=== PATIENT | male | born 1945 | race Caucasian/White ===

== ENCOUNTER 2016-06-20 18:40 | Inpatient (IN) | payer OTHER ==
[~2016-06-20] VITALS: Ht 172.7 cm; Wt 102.0 kg
[2016-06-20 18:43] VITALS: Ht 172.7 cm; Wt 102.0 kg
[2016-06-20] MEDS ORDERED: METHYLPREDNISOLONE 125 MG INJ IV STA (19:07)
[2016-06-20] MEDS ORDERED: ALBUTEROL 0.5% (NEB) 2.5 MG/0.5 ML AMP INH STA (19:07)
[2016-06-20] MEDS ORDERED: IPRATROPIUM (NEB) 0.5 MG/2.5 ML AMP INH STA (19:07)
[2016-06-20] MEDS ORDERED: SOD CHLORIDE 0.9% 500 ML IV STA (19:07)
--- NOTE | 2016-06-20 19:29 | RADRPT ---
PROCEDURE: XR Chest. CLINICAL INDICATION: Abdominal pain. TECHNIQUE: Single frontal view of the chest was obtained COMPARISON: None FINDINGS: Cardiomegaly with mild bilateral lung base patchy atelectasis versus air space disease. There is no pleural effusion or pneumothorax. IMPRESSION: Cardiomegaly with mild failure. RPTAT: [facility] Physician Claus Date Time Electronically viewed and signed by Ta Meneses Physician on 06/20/2016 19:28 RS/
[2016-06-20] MEDS ORDERED: ENALAPRILAT 1.25 MG INJ IV ONE (19:30)
[2016-06-20 19:57] LABS: ALBUMIN 4.1 g/dl (3.3-4.9)
[2016-06-20 19:59] LABS: CREATININE 0.93 mg/dl (0.61-1.24)
[2016-06-20 20:00] LABS: BILIRUBIN,INDIRECT 0.5 mg/dl (0-1.1); BILIRUBIN,TOTAL 0.5 mg/dl (0.2-1.3); CALCIUM 9.1 mg/dl (8.4-10.2)
[2016-06-20] MEDS ORDERED: ATOR40TA68 PO (20:01)
[2016-06-20] MEDS ORDERED: LISI40TA9 PO (20:01)
[2016-06-20 20:02] LABS: ALBUMIN/GLOBULIN RATIO 1.41
[2016-06-20] MEDS ORDERED: METF-388 PO (20:02)
[2016-06-20] MEDS ORDERED: GLIP5TAB13 PO (20:02)
[2016-06-20 20:16] LABS: BASOPHIL # 0.1 10^3/ul (0.0-0.1); BASOPHILS % 0.5 % (0.0-2.0); EOSINOPHILS # 0.3 10^3/ul (0.0-0.5); EOSINOPHILS % 2.7 % (0.0-7.0); HEMOGLOBIN 13.8 g/dl (14.0-18.0); LYMPHOCYTES # 1.3 10^3/ul (0.8-2.9); LYMPHOCYTES % 11.3 % (15.0-51.0); MEAN CORPUSCULAR HEMOGLOBIN 29.1 pg (29.0-33.0); MEAN CORPUSCULAR HGB CONC 33.6 g/dl (32.0-37.0); MEAN CORPUSCULAR VOLUME 86.5 fl (82.0-101.0); MEAN PLATELET VOLUME 11.1 fl (7.4-10.4); MONOCYTE # 0.5 10^3/ul (0.3-0.9); NEUTROPHIL # 9.6 10^3/ul (1.6-7.5); NEUTROPHILS % 81.5 % (39.0-77.0); PLATELET COUNT 156 10^3/UL (140-440); RED BLOOD COUNT 4.74 10^6/ul (4.70-6.10); RED CELL DISTRIBUTION WIDTH 13.8 % (11.5-14.5); TROPONIN-I 0.033 ng/ml (0.00-0.12); UNCORRECTED WBC 11.7 10^3/ul (4.8-10.8); WHITE BLOOD COUNT 11.7 10^3/ul (4.8-10.8)
[2016-06-20 20:27] LABS: CONDITION 1
[2016-06-20] MEDS ORDERED: NACL 0.9% 3 ML SYG IV SCH (21:00)
[2016-06-20] MEDS ORDERED: ALBUTEROL/IPRATROPIUM (NEB) 3 ML AMP HHN PRN (21:00)
[2016-06-20] MEDS ORDERED: morphine 2 MG INJ IV PRN (21:00)
[2016-06-20] MEDS ORDERED: NITROGLYCERIN (SL) 0.4 MG TAB SL PRN (21:00)
[2016-06-20] MEDS ORDERED: LABETALOL HCL 20MG INJ IV PRN (21:00)
[2016-06-20] MEDS ORDERED: ONDANSETRON 4 MG INJ IV PRN (21:00)
[2016-06-20] MEDS ORDERED: FUROSEMIDE 40 MG INJ IV ONE (21:00)
[2016-06-20] MEDS ORDERED: ACETAMINOPHEN 325 MG TAB PO PRN (21:00)
[2016-06-20] MEDS ORDERED: INSULIN GLARGINE [LANtus] 3 ML PEN SC SCH (21:00)
[2016-06-20] MEDS ORDERED: LORAZEPAM 2 MG INJ IV PRN (21:00)
[2016-06-20] MEDS ORDERED: DOCUSATE SODIUM 100 MG CAP PO PRN (21:00)
--- NOTE | 2016-06-20 21:14 | ERA ---
ER Documentation Chief Complaint Date/Time DATE: 06/20/16 TIME: 21:06 Chief Complaint shortness of breath,cough x 1 day w/ chest congestion, hx-copd HPI 71-year-old man brought in by EMS from home for complaints of severe coughing fit and shortness of breath beginning at rest. Patient has a history of COPD and feels like at this time he is wheezing. He denies chest pain, no fevers or chills, no vomiting or diarrhea, no headache or blurry vision. Patient denies recent high salt intake. He has a long history of bilateral lower extremity peripheral arterial disease with episodes of claudication, and a history of asbestosis. Patient denies history of CHF ROS All systems reviewed and are negative except as per history of present illness. Medications Home Meds Reported Medications Metformin Hcl* (Metformin Hcl*) 1,000 Mg Tablet, 1000 MG PO WITH BREAKFAST DINNE , #60 TAB 06/20/16 Glipizide* (Glipizide*) 5 Mg Tablet, 5 MG PO DAILY, TAB 06/20/16 Lisinopril* (Lisinopril*) 40 Mg Tablet, 40 MG PO DAILY, #30 TAB 06/20/16 Atorvastatin* (Atorvastatin*) 40 Mg Tablet, 40 MG PO QHS, #30 TAB 06/20/16 Allergies Allergies: Coded Allergies: No Known Allergy (Unverified , 06/20/16) PMhx/Soc Diabetes mellitus, chronic obstructive pulmonary disease, hypertension, peripheral vascular disease with claudication, asbestosis History of Surgery: Yes (APPENDECTOMY) Anesthesia Reaction: No Hx Neurological Disorder: No Hx Respiratory Disorders: Yes (COPD, ASBESTOS) Hx Cardiac Disorders: Yes (HTN, PAD) Hx Psychiatric Problems: No Hx Miscellaneous Medical Probl: Yes (DM) Hx Alcohol Use: Yes Hx Substance Use: No Hx Tobacco Use: Yes (QUIT 2 MOS AGO) Smoking Status: Former smoker FmHx Family History: No diabetes Physical Exam Vitals Vital Signs Date Time Temp Pulse Resp B/P Pulse Ox O2 Delivery O2 Flow Rate FiO2 06/20/16 19:26 Nasal Cannula 2 06/20/16 19:24 98.5 124 28 154/89 98 Room Air 06/20/16 19:20 122 26 99 Nasal Cannula 28 06/20/16 19:03 Nasal Cannula 2.0 06/20/16 18:43 97.9 134 20 186/98 94 Physical Exam GENERAL: Well-developed, well-nourished, dyspneic, afebrile HEENT: Moist mucous membranes, pink conjunctiva, no cervical spine tenderness or step-off deformities, no goiter, no jaundice or icterus, extraocular movements intact without pain. No submandibular induration, and no pharyngeal erythema NEURO: Alert and oriented 3, cranial nerves II through XII intact bilaterally, pupils equal round reactive to light, no focal deficits or facial asymmetry, sensation intact distally Strength 5/5 in upper and lower extremities bilaterally CARDIAC: Tachycardic and regular, no murmurs rubs or gallops LUNGS: Poor air entry bilaterally, positive wheezing, no stridor, bibasilar crackles ABDOMEN: Soft nontender, no guarding, no rigidity, no rebound, no psoas sign no obturator sign. Normoactive bowel sounds SKIN: Warm and dry to touch, no abrasions, contusions, or hematomas, no lacerations, no ecchymosis, no target lesions, and without ulcers EXTREMITIES: No clubbing cyanosis, 1+ pitting edema in the right lower extremity , no skin erythema, calves are bilaterally symmetrical, no Homans sign, no popliteal cord sign. Distal pulses equal and bilateral PSYCH: Normal affect without agitation or irritability Result Diagram: 06/20/16193406/20/161934 Results 24 hrs Laboratory Tests Test 06/20/16 19:35 Alanine Aminotransferase (ALT/SGPT) 31IU/L Albumin 4.1g/dl Albumin/Globulin Ratio 1.41 Alkaline Phosphatase 95IU/L Anion Gap 21 Aspartate Amino Transf (AST/SGOT) 24IU/L B-Type Natriuretic Peptide 3090PG/ML Basophils # 0.110^3/ul Basophils % 0.5% Blood Morphology Comment Blood Urea Nitrogen 12mg/dl Calcium Level 9.1mg/dl Carbon Dioxide Level 22mmol/L Chloride Level 101mmol/L Creatinine 0.93mg/dl Direct Bilirubin 0.00mg/dl Eosinophils # 0.310^3/ul Eosinophils % 2.7% Globulin 2.90g/dl Glucose Level 183mg/dl Hematocrit 41.0% Hemoglobin 13.8g/dl Indirect Bilirubin 0.5mg/dl Lipase 95U/L Lymphocytes # 1.310^3/ul Lymphocytes % 11.3% Mean Corpuscular Hemoglobin 29.1pg Mean Corpuscular Hemoglobin Concent 33.6g/dl Mean Corpuscular Volume 86.5fl Mean Platelet Volume 11.1fl Monocytes # 0.510^3/ul Monocytes % 4.0% Neutrophils # 9.610^3/ul Neutrophils % 81.5% Nucleated Red Blood Cells # 0.010^3/ul Nucleated Red Blood Cells % 0.0/100WBC Platelet Count 62894^3/UL Potassium Level 4.0mmol/L Red Blood Count 4.7410^6/ul Red Cell Distribution Width 13.8% Sodium Level 140mmol/L Total Bilirubin 0.5mg/dl Total Protein 7.0g/dl Troponin I 0.033ng/ml White Blood Count 11.710^3/ul Current Medications Medications (Trade) Dose Ordered Sig/Felisha Route PRN Reason Start Time Stop Time Status Last Admin Dose Admin Albuterol (Proventil 0.5% (Neb)) 10 mg ONCE STAT INH 06/20/16 19:07 06/20/16 19:10 DC 06/20/16 19:20 Ipratropium [place] (Atrovent 0.02% (Neb)) 1 mg ONCE STAT INH 06/20/16 19:07 06/20/16 19:10 DC 06/20/16 19:20 Methylprednisolone Sodium Succinate (Solu-Medrol) 125 mg ONCE STAT IV 06/20/16 19:07 06/20/16 19:10 DC 06/20/16 19:34 Enalaprilat 1.25 mg 1.25 mg ONCE ONCE IV 06/20/16 19:30 06/20/16 19:31 DC 06/20/16 19:34 Sodium Chloride (NS) 500 ml @ 500 mls/hr Q1H STAT IV 06/20/16 19:07 06/20/16 20:06 DC 06/20/16 19:35 Furosemide (Lasix) 60 mg ONCE ONCE IV 06/20/16 21:00 06/20/16 21:01 DC 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 Patient was afebrile. I administered 500 cc normal saline intravenously, methylprednisolone 125 mg IV , albuterol 10 mg via nebulizer, and ipratropium 1 mg via nebulizer. For hypertension I administered enalapril 1.25 mg IV with good response One view chest x-ray performed, read by me revealed cardiomegaly, bilateral pulmonary vascular congestion, no acute infiltrates, no pneumothorax, no air under the diaphragm. EKG performed, read by me revealed sinus tachycardia with premature ventricular complexes, right axis deviation, and a right bundle branch block with a QRS duration of 132 ms, no concerning ST elevations or depressions noted. CBC was unremarkable, electrolytes normal, liver function tests are normal, troponin was negative. BNP was elevated over 3,000. Influenza AB swabs are negative. Patient already used aspirin today at home, I administered furosemide 60 mg IV 1. Patient's PVCs have resolved, he was also treated with magnesium 2 g IV 1. Critical Care: Time: 37 minutes, this was time separate from other procedures. Treatments/Evaluations: Close monitoring and treatment of unstable vital signs, cardiorespiratory, and neurologic status, while maintaining tight balance of fluid, respiratory, and cardiac interventions. Patient will be admitted to telemetry setting for continued medical management and possible cardiology consultation with echocardiography Departure Diagnosis: Primary Impression: COPD with acute exacerbation Additional Impressions: CHF (congestive heart failure) Qualified Code: I50.21 - Acute systolic congestive heart failure Hypertension Qualified Code: I10 - Essential hypertension Condition: WHITNEY Thomas MD Jun 20, 2016 21:13
[2016-06-20] MEDS ORDERED: SOD CHLORIDE 0.9% 100 ML ONE (21:28)
[2016-06-20] MEDS ORDERED: IOHEXOL 300MG/ML 150 ML BTL ONE (21:28)
[2016-06-20] MEDS ORDERED: GLUCOSE GEL 15 GRAM TUBE PO PRN ×2 (21:30)
[2016-06-20] MEDS ORDERED: DEXTROSE 50% 50 ML SYRINGE IV PRN ×2 (21:30)
[2016-06-20] MEDS ORDERED: GLUCAGON 1 MG INJ IM PRN (21:30)
[2016-06-20] MEDS ORDERED: MAGNESIUM SULFATE 2 GM/50 ML 50 ML IVPB ONE (21:30)
[2016-06-20] MEDS ORDERED: GLUCOSE GEL 15 GRAM TUBE BUCCAL PRN (21:30)
--- NOTE | 2016-06-20 21:31 | HP ---
Date/Time of Note Date/Time of Note DATE: 06/20/16 TIME: 21:19 Assessment/Plan VTE Prophylaxis VTE Prophylaxis Intervention: LMWH Assessment/Plan Assessment/Plan 71 yo male with a past medical history of COPD, Type II DM, Essential Hypertension, Dyslipidemia, Asbestosis exposure, PAD, who presents with acute shortness of breath. 1. Shortness of breath - multifactorial - CHF + COPD exacerbations, - will admit the patient telemetry consult pulm/cardio, obtain 2D-ECHO, cycle cardiac markers, check TSH/Mag levels, BB/Morphine/NTG SL/Statin/ASA to be given, duonebs prn, CT chest w/ IV contrast, solu-medrol 2. Essential Hypertension - continue with lisinopril, labetalol prn for sbp > 160 3. Type II DM - check hgba1c, ISS, Lantus/Novolog scheduled since patient to be on solu-medrol 4. Dyslipidemia -continue with statin, check lipid panel 5. PAD - aspirin 6. Asbestosis exposure - check CT chest - possible need for PFT's as outpatient 7. GI ppx - pepcid po 8. DVT ppx - lovenox answered all of his questions. as per clinical course. this history and physical took greater then 45 minutes to complete HPI/ROS Admit Date/Time Admit Date/Time 06/20/2016, 9:19 pm Hx of Present Illness 71 yo male with a past medical history of COPD, Type II DM, Essential Hypertension, Dyslipidemia, Asbestosis exposure, PAD, who presents with acute shortness of breath. He states that earlier today, he was having some post- nasal drip and had a coughing bout that would not stop. It got to a point where he could not catch his breath, became diaphoretic and had facial flushing. Associated with this is dizziness and headaches. He denies any chest pain, fevers/chills, loss of consciousness, urinary/bowel irregularities, nausea/ vomiting/diarrhea/constipation, sick contacts or recent travel. This has not happened before. Never had a CT of his chest, no echocardiogram previously. ER course: lasix, solu-medrol, magnesium, duonebs ROS 14 point review of systems completed, please refer to HPI for any positive findings PMH/Family/Social Past Medical History PAD Medical History: diabetes, high cholesterol, hypertension Past Surgical History left foot pain Past Surgical Hx: appendectomy Family History Significant Family History: heart disease (father of MA age 51) Social History Alcohol Use: rarely Smoking Status: Former smoker (1 ppd x 30 years, quit) Drug Use: none Exam/Review of Systems Vital Signs Vitals Vital Signs Date Time Temp Pulse Resp B/P Pulse Ox O2 Delivery O2 Flow Rate FiO2 06/20/16 19:26 Nasal Cannula 2 06/20/16 19:24 98.5 124 28 154/89 98 06/20/16 19:20 28 Exam Exam Gen Soni: mild to moderate distress 2/2 shortness of breath, AAOx4, obese male HEENT: NC/AT, PERRLA, EOMI, no pharyngeal erythema, no tonsillar exudates, no lymphadenopathy, no JVD, no carotid bruits NECK: supple, no thyromegaly THORAX: symmetrical, no obvious deformities CV: S1S2, RRR, no M/G/R Lungs: coarse breath sounds worse at the bases bilaterally, end expiratory wheezing noted, bibasilar crackles Abd: soft, NT/ND, +BS, no rebound, no guarding, neg HSM EXT: trace bilateral lower extremity edema, no ecchymosis, no clubbing, FROM Neuro: CN II-XII grossly intact, no focal deficits Psych: good mentation, alert and oriented, good mood and affect Skin: C/D/I Labs Result Diagram: 06/20/16193406/20/161934 Medications Medications Current Medications Magnesium Sulfate (Magnesium Sulfate 2 Gm/50 ml) 50 ml @ 25 mls/hr ONCE ONCE IVPB ; Start 06/20/16 at 21:30; Stop 06/20/16 at 23:29 Procedures Procedures CXR IMPRESSION: Cardiomegaly with mild failure. EKG: tachycardiac rate 118 with frequent PVCs noted LALITA HERBERT MD Jun 20, 2016 21:30
[2016-06-20 22:00] LABS: MAGNESIUM 1.3 mg/dl (1.7-2.5)
--- NOTE | 2016-06-20 22:13 | RADRPT ---
PROCEDURE: CT Chest with contrast. CLINICAL INDICATION: Shortness of breath. TECHNIQUE: Helical axial sections were obtained through the chest with intravenous contrast enhanc ement. 90 ml of Omnipaque-300 was used for the intravenous contrast. Coronal and sagittal reforma tted images were obtained from the axial source images. Total exam DLP is 615.03 mGy-cm. CTDIvol is 15.81 mGy. One or more of the following dose reduction techniques were used: Automated exposure co ntrol, adjustment of the mA and/or kV according to patient size, use of iterative reconstruction shubham hnique. COMPARISON: None FINDINGS: The lungs are clear with no airspace or interstitial disease. There is no pulmonary nodule or mass lesion. There is no mediastinal or hilar lymphadenopathy or mass. There is no axillary, supraclavicular, or internal mammary lymphadenopathy. The thoracic aorta is not dilated. There is calcification in the aorta consistent with atherosclero sis. The heart size is normal. There is extensive coronary artery calcification. There is no pleural effusion or pericardial effusion. Images through the upper abdomen demonstrate normal visualized portions of the liver, spleen, and ad renals. There are degenerative changes of the spine and thoracic kyphosis. IMPRESSION: 1. Atherosclerosis. 2. Extensive coronary artery calcification. 3. Degenerative changes of the spine and thoracic kyphosis. 4. Otherwise unremarkable CT scan of the chest. RPTAT: QQ .Alexis Jurado MD, Date Time Electronically viewed and signed by .Alexis Jurado MD, on 06/20/2016 22:13 .R/
[2016-06-20 22:31] LABS: THYROID STIMULATING HORMONE 2.66 MIU/L (0.465-4.680)
[2016-06-20] MEDS: FAMOTIDINE 20 MG TAB PO SCH (23:52)
[2016-06-20] MEDS: METHYLPREDNISOLONE 125 MG INJ IV SCH (23:52)
[2016-06-20] MEDS: INSULIN ASPART [NOVOLOG] 3 ML PEN SC SCH (23:54)
[2016-06-21] VITALS (9 sets, daily range): BP systolic 110–142; BP diastolic 52–72; PULSE 85–101; RESP 18–20; TEMP 98.1
[2016-06-21] MEDS: ATORVASTATIN 40 MG TAB PO SCH ×2 (00:16→21:40)
[2016-06-21 02:05] LABS: CK-MB 2.56 ng/ml (0.0-2.4)
[2016-06-21 02:07] LABS: TROPONIN-I 0.34 ng/ml (0.00-0.12)
[2016-06-21] MEDS ORDERED: HEPARIN 25000 UNITS/250 ML 250 ML IV SCH (04:00)
[2016-06-21] MEDS ORDERED: HEPARIN 1000 UNITS/ML 10 ML INJ IV ONE (04:00)
[2016-06-21] MEDS ORDERED: MAGNESIUM SULFATE 4 GM/100 ML 100 ML IVPB ONE (05:30)
[2016-06-21] MEDS: METHYLPREDNISOLONE 125 MG INJ IV SCH ×3 (05:41→21:40)
[2016-06-21 06:22] LABS: BASOPHILS % 0.1 % (0.0-2.0); EOSINOPHILS % 0.2 % (0.0-7.0); HEMATOCRIT 39.9 % (42.0-52.0); HEMOGLOBIN 13.5 g/dl (14.0-18.0); LYMPHOCYTES # 0.4 10^3/ul (0.8-2.9); LYMPHOCYTES % 6.1 % (15.0-51.0); MEAN CORPUSCULAR HEMOGLOBIN 29.2 pg (29.0-33.0); MEAN CORPUSCULAR HGB CONC 33.8 g/dl (32.0-37.0); MEAN CORPUSCULAR VOLUME 86.3 fl (82.0-101.0); MEAN PLATELET VOLUME 11.2 fl (7.4-10.4); MONOCYTE # 0.1 10^3/ul (0.3-0.9); MONOCYTES % 1.1 % (0.0-11.0); NEUTROPHIL # 6.8 10^3/ul (1.6-7.5); NEUTROPHILS % 92.5 % (39.0-77.0); PLATELET COUNT 151 10^3/UL (140-440); RED BLOOD COUNT 4.62 10^6/ul (4.70-6.10); RED CELL DISTRIBUTION WIDTH 14.1 % (11.5-14.5); UNCORRECTED WBC 7.4 10^3/ul (4.8-10.8); WHITE BLOOD COUNT 7.4 10^3/ul (4.8-10.8)
[2016-06-21 06:26] LABS: POTASSIUM 4.6 mmol/L (3.5-5.1)
[2016-06-21 06:29] LABS: CREATININE 1.01 mg/dl (0.61-1.24)
[2016-06-21 06:30] LABS: CALCIUM 9.3 mg/dl (8.4-10.2)
[2016-06-21 06:34] LABS: CONDITION 1; LH ANALYZER COMMENTS 1
[2016-06-21 07:08] LABS: INR 1.01; PROTIME 13.3 Sec (12.2-14.2)
[2016-06-21] MEDS: INSULIN ASPART [NOVOLOG] 3 ML PEN SC SCH ×6 (07:21→21:43)
[2016-06-21] MEDS ORDERED: INSULIN ASPART [NOVOLOG] 3 ML PEN SC SCH (07:55)
[2016-06-21] MEDS: ASPIRIN 81 MG TAB PO SCH (08:52)
[2016-06-21] MEDS: FAMOTIDINE 20 MG TAB PO SCH ×2 (08:53→21:40)
[2016-06-21] MEDS: LISINOPRIL 20 MG TAB PO SCH (08:53)
[2016-06-21] MEDS ORDERED: FUROSEMIDE 40 MG INJ IV ONE (09:00)
[2016-06-21] MEDS ORDERED: ENOXAPARIN 40 MG/0.4 ML SYG SC SCH (09:00)
[2016-06-21] MEDS ORDERED: HEPARIN 1000 UNITS/ML 10 ML INJ IV PRN (10:00)
[2016-06-21 10:03] LABS: CK-MB 2.69 ng/ml (0.0-2.4)
[2016-06-21 10:05] LABS: TROPONIN-I 0.364 ng/ml (0.00-0.12)
[2016-06-21] MEDS ORDERED: FUROSEMIDE 20 MG INJ IV ONE (12:30)
--- NOTE | 2016-06-21 14:31 | PN ---
Date/Time of Note Date/Time of Note DATE: 06/21/16 TIME: 14:27 Assessment/Plan VTE Prophylaxis VTE Prophylaxis Intervention: heparin Lines/Catheters IV Catheter Type (from Nrs): Peripheral IV Assessment/Plan Chief Complaint/Hosp Course Assessment and plan 1. Dyspnea suspect secondary to COPD exacerbation. 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 No active bowel distress noted at this time. Continue on bronchodilators 2. Elevated troponin marker. Echocardiogram to follow. We'll follow-up with cardiogenic recommendations. Denies any chest pain at this time. 3. Type 2 diabetes. Continue insulin regimen. Will adjust as needed 4. Dyslipidemia. Continue on statin 5. History of PAD. Continue on antiplatelet therapy 6. Reported asbestos exposure. . Patient is followed by medical records secretary. CT scan of the chest with no significant pulmonary findings GERD prophylaxis: H2 michael DVT prophylaxis: Lovenox Disposition and plan: Continue telemetry monitoring. Continue heparin drip for now. Await cardiology and pulmonology recommendations. Discussed plan of care with Problems: Subjective 24 Hr Interval Summary Free Text/Dictation denies any chest pain. does report better breathing at this time Exam/Review of Systems Vital Signs Vitals Vital Signs Date Time Temp Pulse Resp B/P Pulse Ox O2 Delivery O2 Flow Rate FiO2 06/21/16 12:15 98 06/21/16 11:57 98.6 20 127/72 99 06/21/16 07:26 Nasal Cannula 2.0 06/20/16 19:20 28 Intake and Output 06/20/16 06/20/16 06/21/16 14:59 22:59 06:59 Intake Total 50 ml Output Total 1875 ml Balance -1825 ml Exam General: No acute signs or symptoms of distress Eyes: pupils equal round, Anicteric sclera Neck: Supple nontender, no JVD Cardiac: S1, S2 auscultated, regular rhythm and rate Pulmonary: No coarse rhonchi or breathing auscultated GI: Abdomen soft nontender nondistended, bowel sounds active Extremities: No edema bilateral lower extremities Skin: Clean dry and intact Neurologic: Alert to person place and time and situation Results Result Diagram: 06/21/16 0540 06/21/16 0540 Results 24 hrs Laboratory Tests Test 06/20/16 19:35 06/20/16 23:47 06/21/16 01:30 06/21/16 05:40 Alanine Aminotransferase (ALT/SGPT) 31 Albumin 4.1 Albumin/Globulin Ratio 1.41 Alkaline Phosphatase 95 Anion Gap 21 H 18 H Aspartate Amino Transf (AST/SGOT) 24 B-Type Natriuretic Peptide 3090 H Basophils # 0.1 0.0 Basophils % 0.5 0.1 Blood Morphology Comment Blood Urea Nitrogen 12 13 Calcium Level 9.1 9.3 Carbon Dioxide Level 22 23 Chloride Level 101 103 Cholesterol Level 185 Cholesterol/HDL Ratio 5.0 Creatinine 0.93 1.01 Direct Bilirubin 0.00 Eosinophils # 0.3 0.0 Eosinophils % 2.7 0.2 Globulin 2.90 Glucose Level 183 303 H HDL Cholesterol 37 Hematocrit 41.0 L 39.9 L Hemoglobin 13.8 L 13.5 L Hemoglobin A1c 6.7 H Indirect Bilirubin 0.5 LDL Cholesterol, Calculated 99 Lipase 95 Lymphocytes # 1.3 0.4 L Lymphocytes % 11.3 L 6.1 L Magnesium Level 1.3 L Mean Corpuscular Hemoglobin 29.1 29.2 Mean Corpuscular Hemoglobin Concent 33.6 33.8 Mean Corpuscular Volume 86.5 86.3 Mean Platelet Volume 11.1 H 11.2 H Monocytes # 0.5 0.1 L Monocytes % 4.0 1.1 Neutrophils # 9.6 H 6.8 Neutrophils % 81.5 H 92.5 H Nucleated Red Blood Cells # 0.0 0.0 Nucleated Red Blood Cells % 0.0 0.0 Platelet Count 156 151 Potassium Level 4.0 4.6 Red Blood Count 4.74 4.62 L Red Cell Distribution Width 13.8 14.1 Sodium Level 140 139 Thyroid Stimulating Hormone (TSH) 2.660 Total Bilirubin 0.5 Total Protein 7.0 Triglycerides Level 246 H Troponin I 0.033 0.340 *H White Blood Count 11.7 H 7.4 # Bedside Glucose 212 Creatine Kinase 114 Creatine Kinase Index 2.2 Creatinine Kinase MB (Mass) 2.56 H Activated Partial Thromboplast Time 33.0 INR International Normalized Ratio 1.01 Prothrombin Time 13.3 Prothrombin Time Ratio 1.0 Test 06/21/16 08:00 06/21/16 09:30 06/21/16 11:47 Bedside Glucose 390 H 310 H Creatine Kinase 128 Creatine Kinase Index 2.1 Creatinine Kinase MB (Mass) 2.69 H Troponin I 0.364 *H Medications Medications Current Medications Lorazepam (Ativan) 0.5 mg Q6H PRN IV ANXIETY; Start 06/20/16 at 21:00 Ondansetron HCl (Zofran Inj) 4 mg Q6H PRN IV NAUSEA AND/OR VOMITING; Start 03/27 at 21:00 Aspirin (Aspirin) 81 mg DAILY PO Last administered on 06/21/16 08:52; Admin Dose 81 MG; Start 06/21/16 at 09:00 Nitroglycerin (Nitroglycerin (Sl Tab) 0.4 Mg) 1 tab Q5M PRN SL CHEST PAIN; Start 06/20/16 at 21:00 Acetaminophen (Tylenol Tab) 650 mg Q6H PRN PO PAIN LEVEL 1-3 OR FEVER; Start at 21:00 Morphine Sulfate (morphine) 2 mg Q4H PRN IV PAIN LEVEL 7-10; Start 06/20/16 at 21:00 Docusate Sodium (Colace) 100 mg Q12H PRN PO CONSTIPATION; Start 06/20/16 at 21: 00 Famotidine (Pepcid) 20 mg Q12 PO Last administered on 06/21/16 08:53; Admin Dose 20 MG; Start 06/20/16 at 21:00 Atorvastatin Calcium (Lipitor) 40 mg QHS PO Last administered on 06/21/16 00: 16; Admin Dose 40 MG; Start 06/20/16 at 21:00 Lisinopril (Zestril) 40 mg DAILY PO Last administered on 06/21/16 08:53; Admin Dose 40 MG; Start 06/21/16 at 09:00 Labetalol HCl (Labetalol) 10 mg Q6H PRN IV sbp > 160; Start 06/20/16 at 21:00 Methylprednisolone Sodium Succinate (Solu-Medrol) 60 mg Q8 IV Last administered on 06/21/16 05:41; Admin Dose 60 MG; Start 06/20/16 at 22:00 Miscellaneous Information 1 ea NOTE XX ; Start 06/20/16 at 21:30 Glucose (Glutose) 15 gm Q15M PRN PO DECREASED GLUCOSE; Start 06/20/16 at 21:30 Glucose (Glutose) 22.5 gm Q15M PRN PO DECREASED GLUCOSE; Start 06/20/16 at 21: 30 Dextrose (D50w Syringe) 25 ml Q15M PRN IV DECREASED GLUCOSE; Start 06/20/16 at 21:30 Dextrose (D50w Syringe) 50 ml Q15M PRN IV DECREASED GLUCOSE; Start 06/20/16 at 21:30 Glucagon (Glucagen) 1 mg Q15M PRN IM DECREASED GLUCOSE; Start 06/20/16 at 21:30 Glucose (Glutose) 15 gm Q15M PRN BUCCAL DECREASED GLUCOSE; Start 06/20/16 at 21 :30 Insulin Glargine (Lantus) 15 unit HS SC ; Start 06/21/16 at 21:00 Diltiazem HCl (Cardizem) 30 mg Q8 PO ; Start 06/21/16 at 14:00 MARY CONNOLLY Jun 21, 2016 14:31
[2016-06-21] MEDS: DILTIAZEM 30 MG TAB PO SCH ×2 (14:51→21:41)
--- NOTE | 2016-06-21 15:27 | CONS ---
DATE OF ADMISSION: 06/20/2016 DATE OF CONSULTATION: 06/21/2016 REASON FOR CONSULTATION: Positive troponin. REQUESTING PHYSICIAN: Dr. Herbert from the hospitalist service. HISTORY OF PRESENT ILLNESS: This is a cardiology consultation for Mr. 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 He initially presented with complaints o f shortness of breath, postnasal drip and cough. Upon arrival, temperature of 97.9, blood pressure markedly elevated at 186/98, pulse 134, respiratory rate 20, saturating 94% on 2 liters. The patient's labs revealed a sodium 140, potassium 4.0, creatinine 0.93, BUN of 12. AST 24, ALT 31 . [place]NP of 3009. Troponin initially negative. LDL 99, HDL 37. TSH 2.66. INR of 1.0. The patient's chest CT revealed atherosclerosis with extensive coronary artery calcification and deg enerative changes of the spine and thoracic kyphosis. The patient then underwent a chest x-ray reve aling cardiomegaly with mild failure. The patient's electrocardiogram revealed sinus tachycardia an d rate of 121 with right axis deviation, right bundle branch block, left posterior fascicular block and associated occasional PVCs. The patient was subsequently admitted to the floor and since admitt ed to floor had improvement in respiratory status and heart rate has trended down. The patient's la bs were notable for a minimally positive troponin of 0.340, followed by 3.64 with a negative CK-MB. The patient denies chest pain at this time. PAST MEDICAL HISTORY: As above in HPI. MEDICATIONS CURRENTLY IN HOSPITAL: 1. Aspirin 81 mg daily. 2. Zestril 40 mg daily. 3. Heparin IV. 4. Solu-Medrol 60 mg IV q.8h. 5. Ativan p.r.n. 6 Zofran p.r.n. 7. Tylenol p.r.n. 8. Morphine p.r.n. 9. Pepcid 20 mg p.o. q.12h. 10. DuoNebs. 11. Lipitor 40 mg at bedtime. 12. Labetalol p.r.n. ALLERGIES: NO KNOWN DRUG ALLERGIES. SOCIAL HISTORY: Occasional social ETOH. No illicit drug use. FAMILY HISTORY: No history of sudden cardiac or early CAD. REVIEW OF SYSTEMS: As above in HPI. CONSTITUTIONAL: No fevers, chills. PULMONARY: Shortness of breath, chronic obstructive pulmonary disease. GASTROINTESTINAL: No vomiting. GENITOURINARY: No hematuria. MUSCULOSKELETAL: Degenerative joint disease. PSYCHIATRIC: The patient denies depression. NEUROLOGIC: No documented history of CVA. ENDOCRINE: Diabetes mellitus. PHYSICAL EXAMINATION: VITAL SIGNS: Temperature of 98.6, blood pressure 127/72, pulse 96, respiratory rate 20, saturating 99%. GENERAL: The patient is alert, awake, complaining of mild shortness of breath. NECK: JVP approximately 8 cm water. CHEST: Fair air movement throughout. HEART: Regular rate and rhythm. Normal S1 and increased S2. A 1/6 systolic murmur, nondisplaced P KS. ABDOMEN: Positive bowel sounds, soft. EXTREMITIES: No edema, 1+ pulses bilaterally, posterior tibial. LABORATORY DATA: As above in HPI with most recently from today, sodium 139, potassium 4.6, creatini ne 1.0, BUN 13. Troponin 0.364, BUN of 7.4, hemoglobin 13.5, platelet count 151. IMAGING STUDIES: As above in HPI. No further imaging studies for my review at this time. ECG: As above in HPI. No further electrocardiograms for my review at this time. IMPRESSION: 1. Positive troponin, assess significance, likely demand ischemia in the setting of tachycardia, re spiratory distress. 2. Abnormal electrocardiogram. 3. Right bundle branch block pattern on EKG. 4. Shortness of breath, status post acute coronary syndrome. 5. Hypertension. 6. Tachycardia. 7. Chronic obstructive pulmonary disease exacerbation. 8. Congestive heart failure. RECOMMENDATIONS: 1. At this time, would maintain patient on Zestril, blood pressure control and additionally continu e the patient's statin therapy. 2. Continue the patient's aspirin therapy. We will start the patient on calcium channel michael fo r non-dihydropyridine with diltiazem for heart rate control in the setting of positive troponins wit h chronic obstructive pulmonary disease exacerbation. 3. Will check a 2D echocardiogram to further assess the patient's ejection fraction, wall motion an d any major valve abnormalities. 4. Continue the patient's current steroids, bronchodilators and continue the heparin for now, will likely discontinue if no significant uptrend of troponins. 5. We will place the patient in for a Lexiscan stress test to take place in the morning to assess s ignificance of minimally positive troponins in the setting of negative CK and CK-MB. Dictated By: GAYLE PERRIN/KIRAN Conf#: [id number] DID#: [id number] CC: LALITA HERBERT MD; NIRU SCHROEDER MD;*[facility]*
--- NOTE | 2016-06-21 15:29 | RADRPT ---
Echocardiogram Report Patient Name: WHITNEY HOLLINGSWORTH Gender: Male Date: 1945 Study Date: 21-Jun-2016 Advertising Writer: [facility] Location: 512-A Ref. Physician: LALITA HERBERT Quality: Good Procedures: Transthoracic echocardiogram with complete 2D, M-Mode, and doppler examination. Indications: Congestive Heart Failure. 2D/M Mode Doppler Measurement Value Normal Ranges Measurement Value Normal Ranges LVIDd 2D 5.5 3.5 - 5.6 cm AV Peak Rigoberto 1.8 m/sec LVIDs 2D 3.8 2.1 - 4.1 cm AV Peak PG 13.0 mmHg FS 2D 30.9 % LVOT Peak Rigboerto 0.9 m/sec LVPWd 2D 1.0 0.6 - 1.1 cm LVOT Peak PG 3.0 mmHg IVSd 2D 1.0 0.6 - 1.1 cm MV E Peak Rigoberto 1.4 m/sec IVS/LVPW 2D 1.0 MV A Peak Rigoberto 0.8 m/sec AoR Diam 2D 2.9 2.0 - 3.7 cm MV E/A 1.8 LA/Ao 2D 1 0 - 1 MV Decel Time 137 msec EDV 2D 169.0 cm3 MV E/A 1.8 ESV 2D 55.7 cm3 MR Peak PG 58.0 mmHg LA Dimen 2D 4.1 2.3 - 4.0 cm MR Peak Rigoberto 3.8 m/sec Findings Left Ventricle: Normal left ventricular systolic function. Normal left ventricular cavity size. Normal left ventricular wall thickness. Ejection fraction is visually estimated at 4045 %. Right Ventricle: Normal right ventricular size. Normal right ventricular systolic function. Left Atrium: Upper limit of normal left atrial size. Right Atrium: The right atrium is normal in size. Mitral Valve: Mild mitral leaflet calcification. Mild mitral valve regurgitation. Aortic Valve: Aortic valve not well visualized. Tricuspid Valve: Normal appearance and function of the tricuspid valve with trace physiologic regurgitation. Normal right ventricular systolic pressure. Pericardium: Normal pericardium with no significant pericardial effusion. Aorta: Normal aortic root. IVC: Normal size and normal respiratory collapse consistent with normal right atrial pressure. Conclusions 1.Normal left ventricular systolic function. Normal left ventricular cavity size. Normal left ventricular wall thickness. Ejection fraction is visually estimated at 40-45 %. 2.Mild mitral leaflet calcification. Mild mitral valve regurgitation. 3.Normal appearance and function of the tricuspid valve with trace physiologic regurgitation. Normal right ventricular systolic pressure. Electronically Signed By: Fransisco Guerrero 21-Jun-2016 15:29:06 -0800 Patient Name: WHITNEY HOLLINGSWORTH Study Date: 21-[id number]
--- NOTE | 2016-06-21 17:12 | CONS ---
DATE OF ADMISSION: 06/20/2016 DATE OF CONSULTATION: 06/21/2016 TYPE OF CONSULTATION: Pulmonary. REASON FOR CONSULTATION: Shortness of breath. Thank you, Dr. Trivedi, for this consultation. HISTORY OF PRESENT ILLNESS: This is a pleasant 71-year-old gentleman with a remote tobacco history. 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 The patient normally lives in [place] and is he re for the winter season, staying with family in [place] until October of this year. He presents wi th a several-day history of increasing shortness of breath, cough, congestion, nasal, and sinus symp toms. No fever, no chills. No hemoptysis or hematemesis. No nausea, no vomiting. He states he is better today. PAST MEDICAL HISTORY: As above. MEDICATIONS: Per chart. ALLERGIES: NONE KNOWN. PHYSICAL EXAMINATION: GENERAL: Elderly gentleman, appears comfortable at rest, no acute distress. VITAL SIGNS: Currently afebrile, pulse is 98, blood pressure 127/72, O2 saturation 98% on 2 L nasal cannula. NECK: Supple. No JVD or lymphadenopathy. CARDIAC: S1, S2. No added sounds or murmurs. CHEST: Diminished air entry bilaterally. ABDOMEN: Soft, nontender. No guarding or rebound. EXTREMITIES: No cyanosis, clubbing, edema. NEUROLOGIC: Grossly intact. No focal deficits. LABORATORIES: White count 7.4, hemoglobin 13.5, platelets 151. BUN 13, creatinine 1.06. Troponin was elevated at 0.36. IMPRESSION AND PLAN: 1. Acute chronic obstructive pulmonary disease exacerbation. 2. Elevated troponins, concerning for a possible non-ST elevation myocardial infarction. 3. The patient history of asbestos exposure. PATIENT WILL NEED: 1. Bronchodilators. 2. Antibiotics. 3. Supplemental O2. 4. Consider echocardiogram and cardiology evaluation for elevated troponins. Dictated By: AUSTIN BARBER MD SV/NTS Conf#: [id number] DID#: [id number] CC: LALITA TRIVEDI MD;*EndCC*
[2016-06-21 18:45] LABS: CK-MB 2.58 ng/ml (0.0-2.4); TROPONIN-I 0.278 ng/ml (0.00-0.12)
[2016-06-21] MEDS: INSULIN GLARGINE [LANtus] 3 ML PEN SC SCH (21:44)
[2016-06-22] VITALS (11 sets, daily range): BP systolic 110–131; BP diastolic 52–64; PULSE 82–92; RESP 18–20
[2016-06-22 01:46] LABS: CK-MB 2.24 ng/ml (0.0-2.4); TROPONIN-I 0.211 ng/ml (0.00-0.12)
[2016-06-22] MEDS: DILTIAZEM 30 MG TAB PO SCH ×3 (05:25→22:25)
[2016-06-22] MEDS: METHYLPREDNISOLONE 125 MG INJ IV SCH (05:26)
[2016-06-22 06:51] LABS: BASOPHILS % 0.1 % (0.0-2.0); HEMATOCRIT 35.8 % (42.0-52.0); HEMOGLOBIN 12.1 g/dl (14.0-18.0); LYMPHOCYTES # 0.9 10^3/ul (0.8-2.9); LYMPHOCYTES % 6.3 % (15.0-51.0); MEAN CORPUSCULAR HGB CONC 33.8 g/dl (32.0-37.0); MEAN CORPUSCULAR VOLUME 85.8 fl (82.0-101.0); MEAN PLATELET VOLUME 11.1 fl (7.4-10.4); MONOCYTE # 0.6 10^3/ul (0.3-0.9); MONOCYTES % 4.1 % (0.0-11.0); NEUTROPHIL # 12.2 10^3/ul (1.6-7.5); NEUTROPHILS % 89.5 % (39.0-77.0); PLATELET COUNT 166 10^3/UL (140-440); RED BLOOD COUNT 4.17 10^6/ul (4.70-6.10); RED CELL DISTRIBUTION WIDTH 14.4 % (11.5-14.5); UNCORRECTED WBC 13.6 10^3/ul (4.8-10.8); WHITE BLOOD COUNT 13.6 10^3/ul (4.8-10.8)
[2016-06-22 06:53] LABS: POTASSIUM 4.6 mmol/L (3.5-5.1)
[2016-06-22 06:56] LABS: CREATININE 1.31 mg/dl (0.61-1.24)
[2016-06-22 06:57] LABS: CALCIUM 8.7 mg/dl (8.4-10.2)
[2016-06-22 06:59] LABS: CONDITION 1
[2016-06-22 07:03] LABS: CHOL/HDL RATIO 3.7 RATIO
[2016-06-22] MEDS: FAMOTIDINE 20 MG TAB PO SCH ×2 (08:23→21:10)
[2016-06-22] MEDS: ASPIRIN 81 MG TAB PO SCH (08:23)
[2016-06-22] MEDS: LISINOPRIL 20 MG TAB PO SCH (08:25)
[2016-06-22] MEDS: INSULIN ASPART [NOVOLOG] 3 ML PEN SC SCH ×7 (08:29→21:14)
--- NOTE | 2016-06-22 09:41 | PN ---
Date/Time of Note Date/Time of Note DATE: 06/22/16 TIME: 09:36 Assessment/Plan VTE Prophylaxis VTE Prophylaxis Intervention: heparin Lines/Catheters IV C[facility]ter Type [facility]from [facility] Saline Lock Assessment/Plan Chief Complaint/Hosp Course Assessment and plan: 71 M with: 1. Dyspnea suspect secondary to COPD exacerbation. 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 Pt states he has prior Hx of asbestos exposure. No present SOB - Continue on bronchodilators, steroids - f/u plum rec's 2. Elevated troponin marker - Denies any chest pain at this time. Echocardiogram showed:Conclusions 1. Normal left ventricular systolic function. Normal left ventricular cavity size. Normal left ventricular wall thickness. Ejection fraction is visually estimated at 40-45 %. 2. Mild mitral leaflet calcification. Mild mitral valve regurgitation. 3. Normal appearance and function of the tricuspid valve with trace physiologic regurgitation. Normal right ventricular systolic pressure. - for CV stress test today, f/u cardiogenic recommendations. 3. Type 2 diabetes - A1c = 6.7 - . Continue insulin regimen. Will adjust as needed 4. Dyslipidemia. Continue on statin 5. History of PAD. Continue on antiplatelet therapy 6. Reported asbestos exposure. . 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 CT scan of the chest with no significant pulmonary findings GERD prophylaxis: H2 michael DVT prophylaxis: Lovenox Disposition and plan: Continue telemetry monitoring. Continue heparin drip for now. Await cardiology and pulmonology recommendations. Problems: Subjective 24 Hr Interval Summary Free Text/Dictation Pt denies cp. Has a lot of questions about stress test scheduled for today. Exam/Review of Systems Vital Signs Vitals Vital Signs Date Time Temp Pulse Resp B/P Pulse Ox O2 Delivery O2 Flow Rate FiO2 06/22/16 07:29 97.5 84 20 114/53 96 06/21/16 07:26 Nasal Cannula 2.0 06/20/16 19:20 28 Intake and Output 06/21/16 06/21/16 06/22/16 15:00 23:00 07:00 Intake Total 720 ml Output Total 500 ml 400 ml Balance -500 ml 320 ml Exam General: No acute signs or symptoms of distress, alert, pleasant Eyes: pupils equal round, Anicteric sclera Neck: Supple nontender, no JVD Cardiac: S1, S2 auscultated, regular rhythm and rate Pulmonary: No coarse rhonchi or breathing auscultated GI: Abdomen soft nontender nondistended, bowel sounds active Extremities: No edema bilateral lower extremities Skin: Clean dry and intact Neurologic: Alert to person place and time and situation Results Result Diagram: 06/22/16 0550 06/22/16 0550 Results 24 hrs Laboratory Tests Test 06/21/16 11:47 06/21/16 17:10 06/21/16 17:56 06/21/16 21:06 Bedside Glucose 310 H 225 H 240 H Creatine Kinase 158 Creatine Kinase Index 1.6 Creatinine Kinase MB (Mass) 2.58 H Troponin I 0.278 *H Test 06/22/16 00:30 06/22/16 05:50 06/22/16 07:33 Creatine Kinase 145 Creatine Kinase Index 1.5 Creatinine Kinase MB (Mass) 2.24 Troponin I 0.211 *H Anion Gap 16 Basophils # 0.0 Basophils % 0.1 Blood Morphology Comment Blood Urea Nitrogen 28 #H Calcium Level 8.7 Carbon Dioxide Level 26 Chloride Level 99 Cholesterol Level 145 Cholesterol/HDL Ratio 3.7 Creatinine 1.31 H Eosinophils # 0.0 Eosinophils % 0.0 Glucose Level 245 H HDL Cholesterol 39 Hematocrit 35.8 L Hemoglobin 12.1 L LDL Cholesterol, Calculated 90 Lymphocytes # 0.9 Lymphocytes % 6.3 L Mean Corpuscular Hemoglobin 29.0 Mean Corpuscular Hemoglobin Concent 33.8 Mean Corpuscular Volume 85.8 Mean Platelet Volume 11.1 H Monocytes # 0.6 Monocytes % 4.1 Neutrophils # 12.2 H Neutrophils % 89.5 H Nucleated Red Blood Cells # 0.0 Nucleated Red Blood Cells % 0.0 Platelet Count 166 Potassium Level 4.6 Red Blood Count 4.17 L Red Cell Distribution Width 14.4 Sodium Level 136 Triglycerides Level 81 White Blood Count 13.6 #H Bedside Glucose 267 H Medications Medications Current Medications Lorazepam (Ativan) 0.5 mg Q6H PRN IV ANXIETY; Start 06/20/16 at 21:00 Ondansetron HCl (Zofran Inj) 4 mg Q6H PRN IV NAUSEA AND/OR VOMITING; Start 03/27 at 21:00 Aspirin (Aspirin) 81 mg DAILY PO Last administered on 06/22/16t 08:23; Admin Dose 81 MG; Start 06/21/16 at 09:00 Nitroglycerin (Nitroglycerin (Sl Tab) 0.4 Mg) 1 tab Q5M PRN SL CHEST PAIN; Start 06/20/16 at 21:00 Acetaminophen (Tylenol Tab) 650 mg Q6H PRN PO PAIN LEVEL 1-3 OR FEVER; Start at 21:00 Morphine Sulfate (morphine) 2 mg Q4H PRN IV PAIN LEVEL 7-10; Start 06/20/16 at 21:00 Docusate Sodium (Colace) 100 mg Q12H PRN PO CONSTIPATION; Start 06/20/16 at 21: 00 Famotidine (Pepcid) 20 mg Q12 PO Last administered on 06/22/16 08:23; Admin Dose 20 MG; Start 06/20/16 at 21:00 Atorvastatin Calcium (Lipitor) 40 mg QHS PO Last administered on 06/21/16 21: 40; Admin Dose 40 MG; Start 06/20/16 at 21:00 Lisinopril (Zestril) 40 mg DAILY PO Last administered on 06/22/16 08:25; Admin Dose 40 MG; Start 06/21/16 at 09:00 Labetalol HCl (Labetalol) 10 mg Q6H PRN IV sbp > 160; Start 06/20/16 at 21:00 Methylprednisolone Sodium Succinate (Solu-Medrol) 60 mg Q8 IV Last administered on 06/22/16 05:26; Admin Dose 60 MG; Start 06/20/16 at 22:00 Miscellaneous Information 1 ea NOTE XX ; Start 06/20/16 at 21:30 Glucose (Glutose) 15 gm Q15M PRN PO DECREASED GLUCOSE; Start 06/20/16 at 21:30 Glucose (Glutose) 22.5 gm Q15M PRN PO DECREASED GLUCOSE; Start 06/20/16 at 21: 30 Dextrose (D50w Syringe) 25 ml Q15M PRN IV DECREASED GLUCOSE; Start 06/20/16 at 21:30 Dextrose (D50w Syringe) 50 ml Q15M PRN IV DECREASED GLUCOSE; Start 06/20/16 at 21:30 Glucagon (Glucagen) 1 mg Q15M PRN IM DECREASED GLUCOSE; Start 06/20/16 at 21:30 Glucose (Glutose) 15 gm Q15M PRN BUCCAL DECREASED GLUCOSE; Start 06/20/16 at 21 :30 Insulin Glargine (Lantus) 15 unit HS SC Last administered on 06/21/16 21:44; Admin Dose 15 UNIT; Start 06/21/16 at 21:00 Diltiazem HCl (Cardizem) 30 mg Q8 PO Last administered on 06/21/16 21:41; Admin Dose 30 MG; Start 06/21/16 at 14:00 CATALINO DUKE Jun 22, 2016 09:40
[2016-06-22] MEDS ORDERED: REGADENOSON 0.4 MG/5 ML SYG ONE (10:14)
--- NOTE | 2016-06-22 10:46 | CONS ---
Date/Time of Note Date/Time of Note DATE: 06/22/16 TIME: 10:39 Assessment/Plan Assessment/Plan Chief Complaint/Hosp Course IMPRESSION: 1. Positive troponin, assess significance, likely demand ischemia in the setting of tachycardia, respiratory distress. 2. Abnormal electrocardiogram. 3. Right bundle branch block pattern on EKG. 4. Shortness of breath, status post acute coronary syndrome. 5. Hypertension. 6. Tachycardia. 7. Chronic obstructive pulmonary disease exacerbation. 8. Congestive heart failure-systolic acute on chronic LVEF 40-45% by echo this admit Recc: -Tele -serial ecg's -Lexiscan stress test today -Continue dilt/zestril for now -Continue steroids/bronchodilators -Follow volume status closely Problems: Consultation Date/Type/Reason Admit Date/Time Jun 20, 2016 at 21:03 Initial Consult Date 06/22/2016 Type of Consultation: Cardiology Reason for Consultation positive troponin Referring Provider: NIRU SCHROEDER Exam/Review of Systems Vital Signs Vitals Vital Signs Date Time Temp Pulse Resp B/P Pulse Ox O2 Delivery O2 Flow Rate FiO2 06/22/16 09:55 82 06/22/16 07:29 97.5 20 114/53 96 06/21/16 07:26 Nasal Cannula 2.0 06/20/16 19:20 28 Intake and Output 06/21/16 06/21/16 06/22/16 15:00 23:00 07:00 Intake Total 720 ml Output Total 500 ml 400 ml Balance -500 ml 320 ml Exam Review of Systems: CONSTITUTIONAL: No fevers, chills. PULMONARY: Mild sob CARDIOVASCULAR: No chest pain/palpitations GASTROINTESTINAL: No nausea/vomiting. GENITOURINARY: No hematuria/dysuria. MUSCULOSKELETAL: No myagias/arthalgias. PSYCHIATRIC: The patient denies depression. NEUROLOGIC: No weakness Constitutional: alert, oriented Psych: no complaints Head: normocephalic ENMT: mucosa pink and moist Neck: jvd (9 cm water), supple Respiratory: diminished breath sounds (at bases/B) Cardiovascular: regular rate and rhythm Gastrointestinal: non-tender, soft Musculoskeletal: muscle tone Extremities: edema (none) Neurological: other (No focal deficits) Results Result Diagram: 06/22/16 0550 06/22/16 0550 Results 24 hrs Laboratory Tests Test 06/21/16 11:47 06/21/16 17:10 06/21/16 17:56 06/21/16 21:06 Bedside Glucose 310 H 225 H 240 H Creatine Kinase 158 Creatine Kinase Index 1.6 Creatinine Kinase MB (Mass) 2.58 H Troponin I 0.278 *H Test 06/22/16 00:30 06/22/16 05:50 06/22/16 07:33 Creatine Kinase 145 Creatine Kinase Index 1.5 Creatinine Kinase MB (Mass) 2.24 Troponin I 0.211 *H Anion Gap 16 Basophils # 0.0 Basophils % 0.1 Blood Morphology Comment Blood Urea Nitrogen 28 #H Calcium Level 8.7 Carbon Dioxide Level 26 Chloride Level 99 Cholesterol Level 145 Cholesterol/HDL Ratio 3.7 Creatinine 1.31 H Eosinophils # 0.0 Eosinophils % 0.0 Glucose Level 245 H HDL Cholesterol 39 Hematocrit 35.8 L Hemoglobin 12.1 L LDL Cholesterol, Calculated 90 Lymphocytes # 0.9 Lymphocytes % 6.3 L Mean Corpuscular Hemoglobin 29.0 Mean Corpuscular Hemoglobin Concent 33.8 Mean Corpuscular Volume 85.8 Mean Platelet Volume 11.1 H Monocytes # 0.6 Monocytes % 4.1 Neutrophils # 12.2 H Neutrophils % 89.5 H Nucleated Red Blood Cells # 0.0 Nucleated Red Blood Cells % 0.0 Platelet Count 166 Potassium Level 4.6 Red Blood Count 4.17 L Red Cell Distribution Width 14.4 Sodium Level 136 Triglycerides Level 81 White Blood Count 13.6 #H Bedside Glucose 267 H Medications Medications Current Medications Lorazepam (Ativan) 0.5 mg Q6H PRN IV ANXIETY; Start 06/20/16 at 21:00 Ondansetron HCl (Zofran Inj) 4 mg Q6H PRN IV NAUSEA AND/OR VOMITING; Start 03/27 at 21:00 Aspirin (Aspirin) 81 mg DAILY PO Last administered on 06/22/16t 08:23; Admin Dose 81 MG; Start 06/21/16 at 09:00 Nitroglycerin (Nitroglycerin (Sl Tab) 0.4 Mg) 1 tab Q5M PRN SL CHEST PAIN; Start 06/20/16 at 21:00 Acetaminophen (Tylenol Tab) 650 mg Q6H PRN PO PAIN LEVEL 1-3 OR FEVER; Start at 21:00 Morphine Sulfate (morphine) 2 mg Q4H PRN IV PAIN LEVEL 7-10; Start 06/20/16 at 21:00 Docusate Sodium (Colace) 100 mg Q12H PRN PO CONSTIPATION; Start 06/20/16 at 21: 00 Famotidine (Pepcid) 20 mg Q12 PO Last administered on 06/22/16 08:23; Admin Dose 20 MG; Start 06/20/16 at 21:00 Atorvastatin Calcium (Lipitor) 40 mg QHS PO Last administered on 06/21/16 21: 40; Admin Dose 40 MG; Start 06/20/16 at 21:00 Lisinopril (Zestril) 40 mg DAILY PO Last administered on 06/22/16 08:25; Admin Dose 40 MG; Start 06/21/16 at 09:00 Labetalol HCl (Labetalol) 10 mg Q6H PRN IV sbp > 160; Start 06/20/16 at 21:00 Methylprednisolone Sodium Succinate (Solu-Medrol) 60 mg Q8 IV Last administered on 06/22/16 05:26; Admin Dose 60 MG; Start 06/20/16 at 22:00 Miscellaneous Information 1 ea NOTE XX ; Start 06/20/16 at 21:30 Glucose (Glutose) 15 gm Q15M PRN PO DECREASED GLUCOSE; Start 06/20/16 at 21:30 Glucose (Glutose) 22.5 gm Q15M PRN PO DECREASED GLUCOSE; Start 06/20/16 at 21: 30 Dextrose (D50w Syringe) 25 ml Q15M PRN IV DECREASED GLUCOSE; Start 06/20/16 at 21:30 Dextrose (D50w Syringe) 50 ml Q15M PRN IV DECREASED GLUCOSE; Start 06/20/16 at 21:30 Glucagon (Glucagen) 1 mg Q15M PRN IM DECREASED GLUCOSE; Start 06/20/16 at 21:30 Glucose (Glutose) 15 gm Q15M PRN BUCCAL DECREASED GLUCOSE; Start 06/20/16 at 21 :30 Insulin Glargine (Lantus) 15 unit HS SC Last administered on 06/21/16 21:44; Admin Dose 15 UNIT; Start 06/21/16 at 21:00 Diltiazem HCl (Cardizem) 30 mg Q8 PO Last administered on 06/21/16 21:41; Admin Dose 30 MG; Start 06/21/16 at 14:00 GAYLE DAVIS Jun 22, 2016 10:45
--- NOTE | 2016-06-22 11:02 | RADRPT ---
Vent Rate: 91 bpm RR Interval: 0 msec HI Interval: 172 msec QRS Duration: 142 msec QT Interval: 382 msec QTC Interval: 469 msec P-R-T [place]: 70 - 80 - 0 degrees Sinus rhythm with frequent premature ventricular complexes in a pattern of bigeminy Right bundle branch block T wave abnormality, consider inferior ischemia Abnormal ECG Electronically Signed By: Scottie Olivia [id number]
--- NOTE | 2016-06-22 11:38 | CONS ---
Date/Time of Note Date/Time of Note DATE: 06/22/16 TIME: 11:37 Consult Date/Type/Reason Admit Date/Time Jun 20, 2016 at 21:03 Initial Consult Date Type of Consultation: pulmonary Ordering Provider: NIRU SCHROEDER Subjective Patient stable overnight No shortness of breath Having stress test this morning Objective Vital Signs Date Time Temp Pulse Resp B/P Pulse Ox O2 Delivery O2 Flow Rate FiO2 06/22/16 09:55 82 06/22/16 07:29 97.5 20 114/53 96 06/21/16 07:26 Nasal Cannula 2.0 06/20/16 19:20 28 Intake and Output 06/21/16 06/21/16 06/22/16 15:00 23:00 07:00 Intake Total 720 ml Output Total 500 ml 400 ml Balance -500 ml 320 ml PHYSICAL EXAMINATION: GENERAL: Elderly gentleman, appears comfortable at rest, no acute distress. VITAL SIGNS: As above NECK: Supple. No JVD or lymphadenopathy. CARDIAC: S1, S2. No added sounds or murmurs. CHEST: Diminished air entry bilaterally. ABDOMEN: Soft, nontender. No guarding or rebound. EXTREMITIES: No cyanosis, clubbing, edema. NEUROLOGIC: Grossly intact. No focal deficits. Results/Medications Result Diagram: 06/22/16 0550 06/22/16 0550 Results 24 hrs Laboratory Tests Test 06/21/16 11:47 06/21/16 17:10 06/21/16 17:56 06/21/16 21:06 Bedside Glucose 310 H 225 H 240 H Creatine Kinase 158 Creatine Kinase Index 1.6 Creatinine Kinase MB (Mass) 2.58 H Troponin I 0.278 *H Test 06/22/16 00:30 06/22/16 05:50 06/22/16 07:33 Creatine Kinase 145 Creatine Kinase Index 1.5 Creatinine Kinase MB (Mass) 2.24 Troponin I 0.211 *H Anion Gap 16 Basophils # 0.0 Basophils % 0.1 Blood Morphology Comment Blood Urea Nitrogen 28 #H Calcium Level 8.7 Carbon Dioxide Level 26 Chloride Level 99 Cholesterol Level 145 Cholesterol/HDL Ratio 3.7 Creatinine 1.31 H Eosinophils # 0.0 Eosinophils % 0.0 Glucose Level 245 H HDL Cholesterol 39 Hematocrit 35.8 L Hemoglobin 12.1 L LDL Cholesterol, Calculated 90 Lymphocytes # 0.9 Lymphocytes % 6.3 L Mean Corpuscular Hemoglobin 29.0 Mean Corpuscular Hemoglobin Concent 33.8 Mean Corpuscular Volume 85.8 Mean Platelet Volume 11.1 H Monocytes # 0.6 Monocytes % 4.1 Neutrophils # 12.2 H Neutrophils % 89.5 H Nucleated Red Blood Cells # 0.0 Nucleated Red Blood Cells % 0.0 Platelet Count 166 Potassium Level 4.6 Red Blood Count 4.17 L Red Cell Distribution Width 14.4 Sodium Level 136 Triglycerides Level 81 White Blood Count 13.6 #H Bedside Glucose 267 H Medications Current Medications Lorazepam (Ativan) 0.5 mg Q6H PRN IV ANXIETY; Start 06/20/16 at 21:00 Ondansetron HCl (Zofran Inj) 4 mg Q6H PRN IV NAUSEA AND/OR VOMITING; Start 03/27 at 21:00 Aspirin (Aspirin) 81 mg DAILY PO Last administered on 06/22/16 08:23; Admin Dose 81 MG; Start 06/21/16 at 09:00 Nitroglycerin (Nitroglycerin (Sl Tab) 0.4 Mg) 1 tab Q5M PRN SL CHEST PAIN; Start 06/20/16 at 21:00 Acetaminophen (Tylenol Tab) 650 mg Q6H PRN PO PAIN LEVEL 1-3 OR FEVER; Start at 21:00 Morphine Sulfate (morphine) 2 mg Q4H PRN IV PAIN LEVEL 7-10; Start 06/20/16 at 21:00 Docusate Sodium (Colace) 100 mg Q12H PRN PO CONSTIPATION; Start 06/20/16 at 21: 00 Famotidine (Pepcid) 20 mg Q12 PO Last administered on 06/22/16 08:23; Admin Dose 20 MG; Start 06/20/16 at 21:00 Atorvastatin Calcium (Lipitor) 40 mg QHS PO Last administered on 06/21/16 21: 40; Admin Dose 40 MG; Start 06/20/16 at 21:00 Lisinopril (Zestril) 40 mg DAILY PO Last administered on 06/22/16 08:25; Admin Dose 40 MG; Start 06/21/16 at 09:00 Labetalol HCl (Labetalol) 10 mg Q6H PRN IV sbp > 160; Start 06/20/16 at 21:00 Methylprednisolone Sodium Succinate (Solu-Medrol) 60 mg Q8 IV Last administered on 06/22/16 05:26; Admin Dose 60 MG; Start 06/20/16 at 22:00 Miscellaneous Information 1 ea NOTE XX ; Start 06/20/16 at 21:30 Glucose (Glutose) 15 gm Q15M PRN PO DECREASED GLUCOSE; Start 06/20/16 at 21:30 Glucose (Glutose) 22.5 gm Q15M PRN PO DECREASED GLUCOSE; Start 06/20/16 at 21: 30 Dextrose (D50w Syringe) 25 ml Q15M PRN IV DECREASED GLUCOSE; Start 06/20/16 at 21:30 Dextrose (D50w Syringe) 50 ml Q15M PRN IV DECREASED GLUCOSE; Start 06/20/16 at 21:30 Glucagon (Glucagen) 1 mg Q15M PRN IM DECREASED GLUCOSE; Start 06/20/16 at 21:30 Glucose (Glutose) 15 gm Q15M PRN BUCCAL DECREASED GLUCOSE; Start 06/20/16 at 21 :30 Insulin Glargine (Lantus) 15 unit HS SC Last administered on 06/21/16 21:44; Admin Dose 15 UNIT; Start 06/21/16 at 21:00 Diltiazem HCl (Cardizem) 30 mg Q8 PO Last administered on 06/21/16 21:41; Admin Dose 30 MG; Start 06/21/16 at 14:00 Assessment/Plan Chief Complaint/Hosp Course IMPRESSION AND PLAN: 1. Acute chronic obstructive pulmonary disease exacerbation. 2. Elevated troponins, concerning for a possible non-ST elevation myocardial infarction. Stress test this morning appreciate cardiology recommendations. 3. The patient history of asbestos exposure. 4. History of diabetes, exacerbated by steroids PATIENT WILL NEED: 1. Bronchodilators. 2. Antibiotics. 3. Supplemental O2. 4. Cardiology recommendations. 5. Decrease steroids Problems: AUSTIN BARBER MD, [facility] Jun 22, 2016 11:38
--- NOTE | 2016-06-22 12:35 | CONS ---
DATE OF ADMISSION: 06/20/2016 DATE OF CONSULTATION: 06/22/2016 LEXISCAN CARDIOLITE STRESS ELECTROCARDIOGRAM PORT INDICATION: Positive troponin, assess significance. REQUESTING PHYSICIAN: Dr. Trivedi from the hospitalist service. BRIEF HISTORY AND HOSPITAL COURSE: Mr. Mcdaniel is a 71-year-old male with history of hypertension , dyslipidemia, chronic obstructive pulmonary disease, prior tobacco intake who initially presented with complaints of shortness of breath, had a mildly positive troponin. The patient underwent an EK G analysis revealing diffuse nonspecific ST-T-wave abnormalities, and therefore, the patient has bee n referred for Lexiscan stress test to assess for significant positive troponin and EKG abnormalitie s. PROCEDURE: After informed consent was obtained, the patient was brought to the [facility] Department where he was placed continuous telemetry monitoring and blood pressur e cuff cycling every 3 minutes and continuous O2 saturation monitoring. The patient was given Lindsey can infusion protocol over 10 seconds followed by radiolabeled tracer. The patient's test was stopp ed due to completion of protocol. Maximal achieved blood pressure during the test 116/53. Maximal heart rate during the test 101. ECG FINDINGS: The patient did not develop any new Lexiscan-induced ST or T-wave changes from baseli ne abnormalities. No documented PVCs. SYMPTOMS: The patient had no complaints of chest pain or shortness of breath during stress test. IMPRESSION: 1. No Lexiscan-induced ST or T-wave changes from baseline abnormalities or diagnostic cardiac ische . 2. No complaints of chest pain or shortness of breath during stress testing. 3. No documented premature ventricular contractions during stress testing. 4. Report of nuclear images to follow in separate dictation. Dictated By: GAYLE PERRIN/KIRAN Conf#: [id number] DID#: [id number] CC: LALITA TRIVEDI MD;*EndCC*
--- NOTE | 2016-06-22 12:47 | RADRPT ---
PROCEDURE: Lexiscan myocardial perfusion study CLINICAL INDICATION: 71 -year-old patient complaining of chest pain. TECHNIQUE: Lexiscan 0.4 mg intravenously separate acquisition gated myocardial perfusion SPECT usi ng Tc 99m Myoview 33.4 mCi intravenously at stress and Tc-99m Myoview, 11.0 mCi intravenously at res t was performed using the rest/stress sequence. Poststress Myoview SPECT images were obtained in th e supine position. COMPARISON: No prior studies. FINDINGS: Perfusion images reveal a moderate size moderate in degree nonreversible perfusion defect in the inf erior, inferolateral and inferoseptal garcia. Lexiscan post stress gated SPECT images demonstrate mild to moderate hypokinesis of the left ventric le. IMPRESSION: 1. The type and distribution of the scintigraphic abnormalities are most consistent with a moderate -sized nonreversible perfusion defect in the inferior, inferolateral and inferoseptal garcia. 2. Mild to moderate hypokinesis of the left ventricle. 3. The left ventricle ejection fraction at stress is 36%. A call report was made to Dr. Guerrero at 12:45 p.m. on June 22, 2016. RPTAT: HH .Harriet Diaz MD, Date Time Electronically viewed and signed by .Harriet Diaz MD, on 06/22/2016 12:47 .L/
[2016-06-22] MEDS: ATORVASTATIN 40 MG TAB PO SCH (21:10)
[2016-06-22] MEDS: METHYLPREDNISOLONE 40 MG INJ IV SCH (21:10)
[2016-06-22] MEDS: INSULIN GLARGINE [LANtus] 3 ML PEN SC SCH (21:12)
[2016-06-23] VITALS (10 sets, daily range): BP systolic 112–134; BP diastolic 54–68; PULSE 73–91; RESP 17–21
[2016-06-23] MEDS: DILTIAZEM 30 MG TAB PO SCH ×2 (05:31→15:16)
[2016-06-23 06:22] LABS: BASOPHILS % 0.2 % (0.0-2.0); HEMATOCRIT 37.7 % (42.0-52.0); HEMOGLOBIN 12.7 g/dl (14.0-18.0); LYMPHOCYTES # 0.5 10^3/ul (0.8-2.9); LYMPHOCYTES % 4.7 % (15.0-51.0); MEAN CORPUSCULAR HEMOGLOBIN 29.2 pg (29.0-33.0); MEAN CORPUSCULAR HGB CONC 33.7 g/dl (32.0-37.0); MEAN CORPUSCULAR VOLUME 86.7 fl (82.0-101.0); MEAN PLATELET VOLUME 10.5 fl (7.4-10.4); MONOCYTE # 0.2 10^3/ul (0.3-0.9); NEUTROPHIL # 10.7 10^3/ul (1.6-7.5); NEUTROPHILS % 93.1 % (39.0-77.0); PLATELET COUNT 170 10^3/UL (140-440); RED BLOOD COUNT 4.35 10^6/ul (4.70-6.10); RED CELL DISTRIBUTION WIDTH 14.4 % (11.5-14.5); UNCORRECTED WBC 11.5 10^3/ul (4.8-10.8); WHITE BLOOD COUNT 11.5 10^3/ul (4.8-10.8)
[2016-06-23 06:32] LABS: CONDITION 1; LH ANALYZER COMMENTS 1; POTASSIUM 4.6 mmol/L (3.5-5.1)
[2016-06-23 06:35] LABS: CALCIUM 8.6 mg/dl (8.4-10.2); CREATININE 0.97 mg/dl (0.61-1.24)
[2016-06-23] MEDS: INSULIN ASPART [NOVOLOG] 3 ML PEN SC SCH ×7 (07:28→20:29)
[2016-06-23] MEDS: METHYLPREDNISOLONE 40 MG INJ IV SCH ×2 (08:18→20:24)
[2016-06-23] MEDS: FAMOTIDINE 20 MG TAB PO SCH ×2 (08:18→20:25)
[2016-06-23] MEDS: ASPIRIN 81 MG TAB PO SCH (08:18)
[2016-06-23] MEDS: LISINOPRIL 20 MG TAB PO SCH (08:19)
--- NOTE | 2016-06-23 13:27 | PN ---
Date/Time of Note Date/Time of Note DATE: 06/23/16 TIME: 13:22 Assessment/Plan VTE Prophylaxis VTE Prophylaxis Intervention: SCD's Lines/Catheters IV [facility] Assessment/Plan Assessment/Plan 1. COPD acute exacerbation, improving on neb, steroid, and antibiotics 2. Elevated troponin marker, negative stress test 3. Type 2 diabetes. hyperglycemia due to steroid, decrease SoluMedrol, 4. Dyslipidemia. Continue on statin 5. History of PAD. Continue on antiplatelet therapy 6. Reported asbestos exposure. . Patient is followed by general operations agent. CT scan of the chest with no significant pulmonary findings GERD prophylaxis: H2 michael DVT prophylaxis: Lovenox Exam/Review of Systems Vital Signs Vitals Vital Signs Date Time Temp Pulse Resp B/P Pulse Ox O2 Delivery O2 Flow Rate FiO2 06/23/16 12:54 79 06/23/16 11:47 97.5 17 112/68 96 06/21/16 07:26 Nasal Cannula 2.0 06/20/16 19:20 28 Intake and Output 06/22/16 06/22/16 06/23/16 15:00 23:00 07:00 Intake Total 1200 ml 420 ml 400 ml Output Total 850 ml 1400 ml Balance 350 ml 420 ml -1000 ml Results Result Diagram: 06/23/16 0545 06/23/16 0545 Results 24 hrs Laboratory Tests Test 06/22/16 17:08 06/22/16 21:01 06/23/16 05:45 06/23/16 07:25 Bedside Glucose 240 H 261 H 283 H Anion Gap 18 H Basophils # 0.0 Basophils % 0.2 Blood Morphology Comment Blood Urea Nitrogen 26 H Calcium Level 8.6 Carbon Dioxide Level 25 Chloride Level 99 Creatinine 0.97 Eosinophils # 0.0 Eosinophils % 0.0 Glucose Level 294 H Hematocrit 37.7 L Hemoglobin 12.7 L Lymphocytes # 0.5 L Lymphocytes % 4.7 L Mean Corpuscular Hemoglobin 29.2 Mean Corpuscular Hemoglobin Concent 33.7 Mean Corpuscular Volume 86.7 Mean Platelet Volume 10.5 H Monocytes # 0.2 L Monocytes % 2.0 Neutrophils # 10.7 H Neutrophils % 93.1 H Nucleated Red Blood Cells # 0.0 Nucleated Red Blood Cells % 0.0 Platelet Count 170 Potassium Level 4.6 Red Blood Count 4.35 L Red Cell Distribution Width 14.4 Sodium Level 137 White Blood Count 11.5 H Test 06/23/16 11:43 Bedside Glucose 296 H Medications Medications Current Medications Lorazepam (Ativan) 0.5 mg Q6H PRN IV ANXIETY; Start 06/20/16 at 21:00 Ondansetron HCl (Zofran Inj) 4 mg Q6H PRN IV NAUSEA AND/OR VOMITING; Start 03/27 at 21:00 Aspirin (Aspirin) 81 mg DAILY PO Last administered on 06/23/16 08:18; Admin Dose 81 MG; Start 06/21/16 at 09:00 Nitroglycerin (Nitroglycerin (Sl Tab) 0.4 Mg) 1 tab Q5M PRN SL CHEST PAIN; Start 06/20/16 at 21:00 Acetaminophen (Tylenol Tab) 650 mg Q6H PRN PO PAIN LEVEL 1-3 OR FEVER; Start at 21:00 Morphine Sulfate (morphine) 2 mg Q4H PRN IV PAIN LEVEL 7-10; Start 06/20/16 at 21:00 Docusate Sodium (Colace) 100 mg Q12H PRN PO CONSTIPATION; Start 06/20/16 at 21: 00 Famotidine (Pepcid) 20 mg Q12 PO Last administered on 06/23/16 08:18; Admin Dose 20 MG; Start 06/20/16 at 21:00 Atorvastatin Calcium (Lipitor) 40 mg QHS PO Last administered on 06/22/16 21: 10; Admin Dose 40 MG; Start 06/20/16 at 21:00 Lisinopril (Zestril) 40 mg DAILY PO Last administered on 06/23/16 08:19; Admin Dose 40 MG; Start 06/21/16 at 09:00 Labetalol HCl (Labetalol) 10 mg Q6H PRN IV sbp > 160; Start 06/20/16 at 21:00 Miscellaneous Information 1 ea NOTE XX ; Start 06/20/16 at 21:30 Glucose (Glutose) 15 gm Q15M PRN PO DECREASED GLUCOSE; Start 06/20/16 at 21:30 Glucose (Glutose) 22.5 gm Q15M PRN PO DECREASED GLUCOSE; Start 06/20/16 at 21: 30 Dextrose (D50w Syringe) 25 ml Q15M PRN IV DECREASED GLUCOSE; Start 06/20/16 at 21:30 Dextrose (D50w Syringe) 50 ml Q15M PRN IV DECREASED GLUCOSE; Start 06/20/16 at 21:30 Glucagon (Glucagen) 1 mg Q15M PRN IM DECREASED GLUCOSE; Start 06/20/16 at 21:30 Glucose (Glutose) 15 gm Q15M PRN BUCCAL DECREASED GLUCOSE; Start 06/20/16 at 21 :30 Insulin Glargine (Lantus) 15 unit HS SC Last administered on 06/22/16 21:12; Admin Dose 15 UNIT; Start 06/21/16 at 21:00 Diltiazem HCl (Cardizem) 30 mg Q8 PO Last administered on 06/23/16 05:31; Admin Dose 30 MG; Start 06/21/16 at 14:00 Methylprednisolone Sodium Succinate (Solu-Medrol) 40 mg Q12 IV Last administered on 06/23/16 08:18; Admin Dose 40 MG; Start 06/22/16 at 21:00 KEERTHI NGUYỄN MD Jun 23, 2016 13:27
--- NOTE | 2016-06-23 14:53 | PN ---
DATE: 06/23/2016 PULMONARY FOLLOWUP SUBJECTIVE: Chart reviewed. Events noted. The patient had a stress test done yesterday. No ST ch anges or pain was reported during the stress test; however, nuclear report is suggestive of a nonrev ersible defect in the inferior wall. PHYSICAL EXAMINATION: VITAL SIGNS: Blood pressure 112/68, pulse 78, respirations 17, temperature 97.5. HEENT: Pupils are equal and reactive to light. NECK: Supple, no JVD noted, no cervical lymphadenopathy noted, no carotid bruits heard. LUNGS: Fair breath sounds bilaterally. CARDIOVASCULAR: S1, S2 normal. ABDOMEN: Soft, nontender. No organomegaly or masses noted. EXTREMITIES: No clubbing or cyanosis noted. NEUROLOGICAL: Awake. LABORATORY DATA: WBC 11.5, hemoglobin 12.7, hematocrit 37.7, platelets 370. Sodium 137, potassium 4.6, chloride 99, CO2 of 25, BUN 26, creatinine 0.97, glucose 294. IMPRESSION: A 71-year-old male with: 1. Chronic obstructive pulmonary disease exacerbation. 2. Elevated troponin with nonreversible defect seen on the Lexiscan. 3. History of asbestos exposure. 4. History of diabetes mellitus. RECOMMENDATIONS: 1. Continue antibiotics. 2. Taper his steroids. 3. Bronchodilators. 4. Cardiology followup. Dictated By: DELMY LAZO MD, MA/KIRAN Conf#: [id number] DID#: [id number]
--- NOTE | 2016-06-23 16:56 | CONS ---
Date/Time of Note Date/Time of Note DATE: 06/23/16 TIME: 16:52 Assessment/Plan Assessment/Plan Chief Complaint/Hosp Course IMPRESSION: 1. Positive troponin, assess significance, likely demand ischemia in the setting of tachycardia, respiratory distress. 2. Abnormal electrocardiogram. 3. Right bundle branch block pattern on EKG. 4. Shortness of breath, status post acute coronary syndrome. 5. Hypertension. 6. Tachycardia. 7. Chronic obstructive pulmonary disease exacerbation. 8. Congestive heart failure-systolic acute on chronic LVEF 40% by echo this admit/now s/p lexiscan with EF 36% and scar but no ischemia Recc: -Tele -serial ecg's -Continue zestril -will chamge dilt to toprol XL for treatment cardiiomyopathy -Continue steroids/bronchodilators -Follow volume status closely Problems: Consultation Date/Type/Reason Admit Date/Time Jun 20, 2016 at 21:03 Initial Consult Date 06/22/2016 Type of Consultation: Cardiology Reason for Consultation positive troponin/cardiomyopathy Referring Provider: NIRU SCHROEDER Exam/Review of Systems Vital Signs Vitals Vital Signs Date Time Temp Pulse Resp B/P Pulse Ox O2 Delivery O2 Flow Rate FiO2 06/23/16 15:49 98.3 84 17 134/63 97 06/21/16 07:26 Nasal Cannula 2.0 06/20/16 19:20 28 Intake and Output 06/22/16 06/22/16 06/23/16 14:59 22:59 06:59 Intake Total 1200 ml 420 ml 400 ml Output Total 850 ml 1400 ml Balance 350 ml 420 ml -1000 ml Exam Review of Systems: CONSTITUTIONAL: No fevers, chills. PULMONARY: mild sob-improving CARDIOVASCULAR: No chest pain/palpitations GASTROINTESTINAL: No nausea/vomiting. GENITOURINARY: No hematuria/dysuria. MUSCULOSKELETAL: No myagias/arthalgias. PSYCHIATRIC: The patient denies depression. NEUROLOGIC: No weakness Constitutional: alert Psych: no complaints Head: normocephalic ENMT: mucosa pink and moist Neck: jvd (9 cm water), supple Respiratory: diminished breath sounds (at bases/B) Cardiovascular: regular rate and rhythm Gastrointestinal: ascites, soft Musculoskeletal: muscle tone (normal) Extremities: edema (none) Neurological: other (No focal deficits) Results Result Diagram: 06/23/16 0545 06/23/16 0545 Results 24 hrs Laboratory Tests Test 06/22/16 17:08 06/22/16 21:01 06/23/16 05:45 06/23/16 07:25 Bedside Glucose 240 H 261 H 283 H Anion Gap 18 H Basophils # 0.0 Basophils % 0.2 Blood Morphology Comment Blood Urea Nitrogen 26 H Calcium Level 8.6 Carbon Dioxide Level 25 Chloride Level 99 Creatinine 0.97 Eosinophils # 0.0 Eosinophils % 0.0 Glucose Level 294 H Hematocrit 37.7 L Hemoglobin 12.7 L Lymphocytes # 0.5 L Lymphocytes % 4.7 L Mean Corpuscular Hemoglobin 29.2 Mean Corpuscular Hemoglobin Concent 33.7 Mean Corpuscular Volume 86.7 Mean Platelet Volume 10.5 H Monocytes # 0.2 L Monocytes % 2.0 Neutrophils # 10.7 H Neutrophils % 93.1 H Nucleated Red Blood Cells # 0.0 Nucleated Red Blood Cells % 0.0 Platelet Count 170 Potassium Level 4.6 Red Blood Count 4.35 L Red Cell Distribution Width 14.4 Sodium Level 137 White Blood Count 11.5 H Test 06/23/16 11:43 Bedside Glucose 296 H Medications Medications Current Medications Lorazepam (Ativan) 0.5 mg Q6H PRN IV ANXIETY; Start 06/20/16 at 21:00 Ondansetron HCl (Zofran Inj) 4 mg Q6H PRN IV NAUSEA AND/OR VOMITING; Start 03/27 at 21:00 Aspirin (Aspirin) 81 mg DAILY PO Last administered on 06/23/16 08:18; Admin Dose 81 MG; Start 06/21/16 at 09:00 Nitroglycerin (Nitroglycerin (Sl Tab) 0.4 Mg) 1 tab Q5M PRN SL CHEST PAIN; Start 06/20/16 at 21:00 Acetaminophen (Tylenol Tab) 650 mg Q6H PRN PO PAIN LEVEL 1-3 OR FEVER; Start at 21:00 Morphine Sulfate (morphine) 2 mg Q4H PRN IV PAIN LEVEL 7-10; Start 06/20/16 at 21:00 Docusate Sodium (Colace) 100 mg Q12H PRN PO CONSTIPATION; Start 06/20/16 at 21: 00 Famotidine (Pepcid) 20 mg Q12 PO Last administered on 06/23/16 08:18; Admin Dose 20 MG; Start 06/20/16 at 21:00 Atorvastatin Calcium (Lipitor) 40 mg QHS PO Last administered on 06/22/16 21: 10; Admin Dose 40 MG; Start 06/20/16 at 21:00 Lisinopril (Zestril) 40 mg DAILY PO Last administered on 06/23/16 08:19; Admin Dose 40 MG; Start 06/21/16 at 09:00 Labetalol HCl (Labetalol) 10 mg Q6H PRN IV sbp > 160; Start 06/20/16 at 21:00 Miscellaneous Information 1 ea NOTE XX ; Start 06/20/16 at 21:30 Glucose (Glutose) 15 gm Q15M PRN PO DECREASED GLUCOSE; Start 06/20/16 at 21:30 Glucose (Glutose) 22.5 gm Q15M PRN PO DECREASED GLUCOSE; Start 06/20/16 at 21: 30 Dextrose (D50w Syringe) 25 ml Q15M PRN IV DECREASED GLUCOSE; Start 06/20/16 at 21:30 Dextrose (D50w Syringe) 50 ml Q15M PRN IV DECREASED GLUCOSE; Start 06/20/16 at 21:30 Glucagon (Glucagen) 1 mg Q15M PRN IM DECREASED GLUCOSE; Start 06/20/16 at 21:30 Glucose (Glutose) 15 gm Q15M PRN BUCCAL DECREASED GLUCOSE; Start 06/20/16 at 21 :30 Insulin Glargine (Lantus) 15 unit HS SC Last administered on 06/22/16 21:12; Admin Dose 15 UNIT; Start 06/21/16 at 21:00 Diltiazem HCl (Cardizem) 30 mg Q8 PO Last administered on 06/23/16 15:16; Admin Dose 30 MG; Start 06/21/16 at 14:00 Methylprednisolone Sodium Succinate (Solu-Medrol) 20 mg Q12 IV ; Start 06/23/16 at 21:00 GAYLE DAVIS Jun 23, 2016 16:55
[2016-06-23] MEDS ORDERED: ZOLPIDEM 5 MG TAB PO PRN (20:00)
[2016-06-23] MEDS: METOPROLOL (XL) 25 MG TAB PO SCH (20:25)
[2016-06-23] MEDS: ATORVASTATIN 40 MG TAB PO SCH (20:25)
[2016-06-23] MEDS: INSULIN GLARGINE [LANtus] 3 ML PEN SC SCH (20:28)
[2016-06-24] VITALS (9 sets, daily range): BP systolic 113–146; BP diastolic 66–80; PULSE 64–76; RESP 15–20
[2016-06-24 06:52] LABS: POTASSIUM 4.6 mmol/L (3.5-5.1)
[2016-06-24 06:55] LABS: CREATININE 1.08 mg/dl (0.61-1.24)
[2016-06-24 07:01] LABS: HEMATOCRIT 39.2 % (42.0-52.0); HEMOGLOBIN 13.2 g/dl (14.0-18.0); LYMPHOCYTES # 0.8 10^3/ul (0.8-2.9); LYMPHOCYTES % 7.6 % (15.0-51.0); MEAN CORPUSCULAR HEMOGLOBIN 29.5 pg (29.0-33.0); MEAN CORPUSCULAR HGB CONC 33.7 g/dl (32.0-37.0); MEAN CORPUSCULAR VOLUME 87.5 fl (82.0-101.0); MEAN PLATELET VOLUME 10.9 fl (7.4-10.4); MONOCYTE # 0.4 10^3/ul (0.3-0.9); MONOCYTES % 3.5 % (0.0-11.0); NEUTROPHIL # 9.2 10^3/ul (1.6-7.5); NEUTROPHILS % 88.9 % (39.0-77.0); PLATELET COUNT 187 10^3/UL (140-440); RED BLOOD COUNT 4.48 10^6/ul (4.70-6.10); RED CELL DISTRIBUTION WIDTH 14.7 % (11.5-14.5); UNCORRECTED WBC 10.4 10^3/ul (4.8-10.8); WHITE BLOOD COUNT 10.4 10^3/ul (4.8-10.8)
[2016-06-24 07:34] LABS: CONDITION 1; LH ANALYZER COMMENTS 1
[2016-06-24] MEDS: INSULIN ASPART [NOVOLOG] 3 ML PEN SC SCH ×4 (08:32→12:25)
[2016-06-24] MEDS ORDERED: CLOPIDOGREL 75 MG TAB PO SCH (09:00)
[2016-06-24] MEDS: METOPROLOL (XL) 25 MG TAB PO SCH (09:34)
[2016-06-24] MEDS: ASPIRIN 81 MG TAB PO SCH (09:34)
[2016-06-24] MEDS: LISINOPRIL 20 MG TAB PO SCH (09:34)
[2016-06-24] MEDS: FAMOTIDINE 20 MG TAB PO SCH (09:34)
[2016-06-24] MEDS: METHYLPREDNISOLONE 40 MG INJ IV SCH (09:34)
--- NOTE | 2016-06-24 12:25 | CONS ---
Date/Time of Note Date/Time of Note DATE: 06/24/16 TIME: 12:23 Consult Date/Type/Reason Admit Date/Time Jun 20, 2016 at 21:03 Type of Consultation: Cardiology Ordering Provider: NIRU SCHROEDER Subjective Remains stable after cardiac stress test Breathing has improved Less shortness of breath Objective Vital Signs Date Time Temp Pulse Resp B/P Pulse Ox O2 Delivery O2 Flow Rate FiO2 06/24/16 11:06 97.8 78 20 140/80 96 06/21/16 07:26 Nasal Cannula 2.0 06/20/16 19:20 28 Intake and Output 06/23/16 06/23/16 06/24/16 15:00 23:00 07:00 Intake Total 700 ml 500 ml Output Total 1200 ml 800 ml Balance -500 ml -300 ml PHYSICAL EXAMINATION: VITAL SIGNS: As above HEENT: Pupils are equal and reactive to light. NECK: Supple, no JVD noted, no cervical lymphadenopathy noted, no carotid bruits heard. LUNGS: Fair breath sounds bilaterally. CARDIOVASCULAR: S1, S2 normal. ABDOMEN: Soft, nontender. No organomegaly or masses noted. EXTREMITIES: No clubbing or cyanosis noted. NEUROLOGICAL: Awake. Results/Medications Result Diagram: 06/24/16 0506/24/16525 Results 24 hrs Laboratory Tests Test 06/23/16 17:42 06/23/16 20:16 06/24/16 05:26 06/24/16 08:19 Bedside Glucose 308 H 263 H 264 H Anion Gap 17 H Basophils # 0.0 Basophils % 0.0 Blood Morphology Comment Blood Urea Nitrogen 26 H Calcium Level 9.0 Carbon Dioxide Level 28 Chloride Level 100 Creatinine 1.08 Eosinophils # 0.0 Eosinophils % 0.0 Glucose Level 243 H Hematocrit 39.2 L Hemoglobin 13.2 L Lymphocytes # 0.8 Lymphocytes % 7.6 L Mean Corpuscular Hemoglobin 29.5 Mean Corpuscular Hemoglobin Concent 33.7 Mean Corpuscular Volume 87.5 Mean Platelet Volume 10.9 H Monocytes # 0.4 Monocytes % 3.5 Neutrophils # 9.2 H Neutrophils % 88.9 H Nucleated Red Blood Cells # 0.0 Nucleated Red Blood Cells % 0.0 Platelet Count 187 Potassium Level 4.6 Red Blood Count 4.48 L Red Cell Distribution Width 14.7 H Sodium Level 140 White Blood Count 10.4 Test 06/24/16 12:06 Bedside Glucose 254 H Medications Current Medications Lorazepam (Ativan) 0.5 mg Q6H PRN IV ANXIETY Last administered on 06/23/16 20: 37; Admin Dose 0.5 MG; Start 06/20/16 at 21:00 Ondansetron HCl (Zofran Inj) 4 mg Q6H PRN IV NAUSEA AND/OR VOMITING; Start 03/27 at 21:00 Aspirin (Aspirin) 81 mg DAILY PO Last administered on 06/24/16 09:34; Admin Dose 81 MG; Start 06/21/16 at 09:00 Nitroglycerin (Nitroglycerin (Sl Tab) 0.4 Mg) 1 tab Q5M PRN SL CHEST PAIN; Start 06/20/16 at 21:00 Acetaminophen (Tylenol Tab) 650 mg Q6H PRN PO PAIN LEVEL 1-3 OR FEVER; Start at 21:00 Morphine Sulfate (morphine) 2 mg Q4H PRN IV PAIN LEVEL 7-10; Start 06/20/16 at 21:00 Docusate Sodium (Colace) 100 mg Q12H PRN PO CONSTIPATION; Start 06/20/16 at 21: 00 Famotidine (Pepcid) 20 mg Q12 PO Last administered on 06/24/16 09:34; Admin Dose 20 MG; Start 06/20/16 at 21:00 Atorvastatin Calcium (Lipitor) 40 mg QHS PO Last administered on 06/23/16 20: 25; Admin Dose 40 MG; Start 06/20/16 at 21:00 Lisinopril (Zestril) 40 mg DAILY PO Last administered on 06/24/16 09:34; Admin Dose 40 MG; Start 06/21/16 at 09:00 Labetalol HCl (Labetalol) 10 mg Q6H PRN IV sbp > 160; Start 06/20/16 at 21:00 Miscellaneous Information 1 ea NOTE XX ; Start 06/20/16 at 21:30 Glucose (Glutose) 15 gm Q15M PRN PO DECREASED GLUCOSE; Start 06/20/16 at 21:30 Glucose (Glutose) 22.5 gm Q15M PRN PO DECREASED GLUCOSE; Start 06/20/16 at 21: 30 Dextrose (D50w Syringe) 25 ml Q15M PRN IV DECREASED GLUCOSE; Start 06/20/16 at 21:30 Dextrose (D50w Syringe) 50 ml Q15M PRN IV DECREASED GLUCOSE; Start 06/20/16 at 21:30 Glucagon (Glucagen) 1 mg Q15M PRN IM DECREASED GLUCOSE; Start 06/20/16 at 21:30 Glucose (Glutose) 15 gm Q15M PRN BUCCAL DECREASED GLUCOSE; Start 06/20/16 at 21 :30 Insulin Glargine (Lantus) 15 unit HS SC Last administered on 06/23/16 20:28; Admin Dose 15 UNIT; Start 06/21/16 at 21:00 Methylprednisolone Sodium Succinate (Solu-Medrol) 20 mg Q12 IV Last administered on 06/24/16 09:34; Admin Dose 20 MG; Start 06/23/16 at 21:00 Metoprolol Succinate (Toprol Xl) 25 mg BID PO Last administered on 06/24/16 09 :34; Admin Dose 25 MG; Start 06/23/16 at 21:00 Clopidogrel Bisulfate (plaVIX) 75 mg DAILY PO Last administered on 06/24/16 09 :33; Admin Dose 75 MG; Start 06/24/16 at 09:00 Zolpidem Tartrate (Ambien) 5 mg HS PRN PO INSOMNIA Last administered on 21:35; Admin Dose 5 MG; Start 06/23/16 at 20:00 Assessment/Plan Chief Complaint/Hosp Course IMPRESSION: A 71-year-old male with: 1. Chronic obstructive pulmonary disease exacerbation. 2. Elevated troponin with nonreversible defect seen on the Lexiscan. 3. History of asbestos exposure. 4. History of diabetes mellitus. RECOMMENDATIONS: 1. Continue antibiotics. 2. Taper his steroids. 3. Bronchodilators. 4. Cardiology followup. Discharge planning Follow-up with [facility] and [facility]ology and office Problems: AUSTIN BARBER MD, [facility] Jun 24, 2016 12:25
--- NOTE | 2016-06-24 13:32 | CONS ---
Date/Time of Note Date/Time of Note DATE: 06/24/16 TIME: 12:57 Assessment/Plan Assessment/Plan Chief Complaint/Hosp Course IMPRESSION: 1. Positive troponin, assess significance, likely demand ischemia in the setting of tachycardia, respiratory distress. 2. Abnormal electrocardiogram. 3. Right bundle branch block pattern on EKG. 4. Shortness of breath, status post acute coronary syndrome. 5. Hypertension. 6. Tachycardia. 7. Chronic obstructive pulmonary disease exacerbation. 8. Congestive heart failure-systolic acute on chronic LVEF 40% by echo this admit/now s/p lexiscan with EF 36% and scar but no ischemia Recc: -Tele -serial ecg's -Continue zestril -Continue asa/plavix -Continue toprol XL for treatment cardiiomyopathy -Continue steroids/bronchodilators -Follow volume status closely and start standing low dose lasix Problems: Consultation Date/Type/Reason Admit Date/Time Jun 20, 2016 at 21:03 Initial Consult Date 06/22/2016 Type of Consultation: Cardiology Reason for Consultation cardiomyopathy/positive troponin Referring Provider: NIRU SCHROEDER Exam/Review of Systems Vital Signs Vitals Vital Signs Date Time Temp Pulse Resp B/P Pulse Ox O2 Delivery O2 Flow Rate FiO2 06/24/16 12:27 73 06/24/16 11:06 97.8 20 140/80 96 06/21/16 07:26 Nasal Cannula 2.0 06/20/16 19:20 28 Intake and Output 06/23/16 06/23/16 06/24/16 15:00 23:00 07:00 Intake Total 700 ml 500 ml Output Total 1200 ml 800 ml Balance -500 ml -300 ml Exam Review of Systems: CONSTITUTIONAL: No fevers, chills. PULMONARY: No sob CARDIOVASCULAR: No chest pain/palpitations GASTROINTESTINAL: No nausea/vomiting. GENITOURINARY: No hematuria/dysuria. MUSCULOSKELETAL: No myagias/arthalgias. PSYCHIATRIC: The patient denies depression. NEUROLOGIC: No weakness Constitutional: oriented Psych: no complaints ENMT: mucosa pink and moist Neck: jvd (8 cm water), supple Respiratory: diminished breath sounds (at bases/B) Cardiovascular: regular rate and rhythm Gastrointestinal: non-tender, soft Musculoskeletal: muscle tone (normal) Extremities: edema (none) Neurological: other (No focal deficits) Results Result Diagram: 06/24/16 0526 06/24/16 0526 Results 24 hrs Laboratory Tests Test 06/23/16 17:42 06/23/16 20:16 06/24/16 05:26 06/24/16 08:19 Bedside Glucose 308 H 263 H 264 H Anion Gap 17 H Basophils # 0.0 Basophils % 0.0 Blood Morphology Comment Blood Urea Nitrogen 26 H Calcium Level 9.0 Carbon Dioxide Level 28 Chloride Level 100 Creatinine 1.08 Eosinophils # 0.0 Eosinophils % 0.0 Glucose Level 243 H Hematocrit 39.2 L Hemoglobin 13.2 L Lymphocytes # 0.8 Lymphocytes % 7.6 L Mean Corpuscular Hemoglobin 29.5 Mean Corpuscular Hemoglobin Concent 33.7 Mean Corpuscular Volume 87.5 Mean Platelet Volume 10.9 H Monocytes # 0.4 Monocytes % 3.5 Neutrophils # 9.2 H Neutrophils % 88.9 H Nucleated Red Blood Cells # 0.0 Nucleated Red Blood Cells % 0.0 Platelet Count 187 Potassium Level 4.6 Red Blood Count 4.48 L Red Cell Distribution Width 14.7 H Sodium Level 140 White Blood Count 10.4 Test 06/24/16 12:06 Bedside Glucose 254 H Medications Medications Current Medications Lorazepam (Ativan) 0.5 mg Q6H PRN IV ANXIETY Last administered on 06/23/16 20: 37; Admin Dose 0.5 MG; Start 06/20/16 at 21:00 Ondansetron HCl (Zofran Inj) 4 mg Q6H PRN IV NAUSEA AND/OR VOMITING; Start 03/27 at 21:00 Aspirin (Aspirin) 81 mg DAILY PO Last administered on 06/24/16 09:34; Admin Dose 81 MG; Start 06/21/16 at 09:00 Nitroglycerin (Nitroglycerin (Sl Tab) 0.4 Mg) 1 tab Q5M PRN SL CHEST PAIN; Start 06/20/16 at 21:00 Acetaminophen (Tylenol Tab) 650 mg Q6H PRN PO PAIN LEVEL 1-3 OR FEVER; Start at 21:00 Morphine Sulfate (morphine) 2 mg Q4H PRN IV PAIN LEVEL 7-10; Start 06/20/16 at 21:00 Docusate Sodium (Colace) 100 mg Q12H PRN PO CONSTIPATION; Start 06/20/16 at 21: 00 Famotidine (Pepcid) 20 mg Q12 PO Last administered on 06/24/16 09:34; Admin Dose 20 MG; Start 06/20/16 at 21:00 Atorvastatin Calcium (Lipitor) 40 mg QHS PO Last administered on 06/23/16 20: 25; Admin Dose 40 MG; Start 06/20/16 at 21:00 Lisinopril (Zestril) 40 mg DAILY PO Last administered on 06/24/16 09:34; Admin Dose 40 MG; Start 06/21/16 at 09:00 Labetalol HCl (Labetalol) 10 mg Q6H PRN IV sbp > 160; Start 06/20/16 at 21:00 Miscellaneous Information 1 ea NOTE XX ; Start 06/20/16 at 21:30 Glucose (Glutose) 15 gm Q15M PRN PO DECREASED GLUCOSE; Start 06/20/16 at 21:30 Glucose (Glutose) 22.5 gm Q15M PRN PO DECREASED GLUCOSE; Start 06/20/16 at 21: 30 Dextrose (D50w Syringe) 25 ml Q15M PRN IV DECREASED GLUCOSE; Start 06/20/16 at 21:30 Dextrose (D50w Syringe) 50 ml Q15M PRN IV DECREASED GLUCOSE; Start 06/20/16 at 21:30 Glucagon (Glucagen) 1 mg Q15M PRN IM DECREASED GLUCOSE; Start 06/20/16 at 21:30 Glucose (Glutose) 15 gm Q15M PRN BUCCAL DECREASED GLUCOSE; Start 06/20/16 at 21 :30 Insulin Glargine (Lantus) 15 unit HS SC Last administered on 06/23/16 20:28; Admin Dose 15 UNIT; Start 06/21/16 at 21:00 Methylprednisolone Sodium Succinate (Solu-Medrol) 20 mg Q12 IV Last administered on 06/24/16 09:34; Admin Dose 20 MG; Start 06/23/16 at 21:00 Metoprolol Succinate (Toprol Xl) 25 mg BID PO Last administered on 06/24/16 09 :34; Admin Dose 25 MG; Start 06/23/16 at 21:00 Clopidogrel Bisulfate (plaVIX) 75 mg DAILY PO Last administered on 06/24/16 09 :33; Admin Dose 75 MG; Start 06/24/16 at 09:00 Zolpidem Tartrate (Ambien) 5 mg HS PRN PO INSOMNIA Last administered on t 21:35; Admin Dose 5 MG; Start 06/23/16 at 20:00 GAYLE DAVIS Jun 24, 2016 13:08
--- NOTE | 2016-06-24 15:07 | PDOCDIS ---
Discharge Instructions DIAGNOSIS Discharge Diagnosis: COPD exacerbation. CHF exacerbation. CONDITION Patient Condition: Stable HOME CARE INSTRUCTIONS: Diet Instructions: Low Fat /CholesterolSpecial Diet: Diabetic FOLLOW UP/APPOINTMENTS Appointments 1. Angel Hendricks MD Specialty: Critical Care/Pulmonary medicine Office Address: [facility] [address] [address] Office 2. Fransisco Guerrero MD Specialty: Cardiology Office Address: [address] [place] [id number] Office OTHER ORDERS: Other Orders: 1. Take medications as per prescription. 2. Low-cholesterol, carbohydrate controlled diet. 3. Resume activities as tolerated. 4. Follow-up with food and beverage assistant [] in 2 weeks. Please call for appointment. 5. Follow-up with cardiology [Dr. Guerrero] in 2 weeks. Please call for appointment. AGNES RANDHAWA NP Jun 24, 2016 15:07
[2016-06-24] MEDS ORDERED: CLOP75TA28 PO (15:08)
[2016-06-24] MEDS ORDERED: ADV25050 INHALATION (15:12)
[2016-06-24] MEDS ORDERED: ALBU8.5H3 INH (15:12)
[2016-06-24] MEDS ORDERED: PRED20TA PO (15:12)
[2016-06-24] MEDS ORDERED: METO25TA7 PO (15:12)
[2016-06-24] MEDS ORDERED: ASP81 PO (15:12)
[2016-06-24] MEDS ORDERED: LAS20 PO (15:12)
[2016-06-24] MEDS ORDERED: METO-448 PO (17:53)
--- NOTE | 2016-06-24 20:26 | DS ---
DATE OF ADMISSION: 06/20/2016 DATE OF DISCHARGE: 06/24/2016 FINAL DIAGNOSES: 1. Acute respiratory distress without failure, hypoxic secondary to congestive heart failure exacerbation, chronic pulmonary disease exacerbation. 2. Chronic obstructive pulmonary disease exacerbation. 3. Congestive heart failure exacerbation. Systolic dysfunction, acute-on- chronic. 4. Essential hypertension. 5. Non-ST elevation myocardial infarction. 6. Ischemic cardiomyopathy. 7. Type 2 diabetes mellitus. 8. History of asbestos exposure. 9. Obesity. 10. Dyslipidemia. CONSULTANTS: 1. Dr. Angel Hendricks, Pulmonary. 2. Dr. Fransisco Guerrero, Cardiology. 3. Dr. Mia Valdivia, Pulmonary. HOSPITAL COURSE: This is a 71-year-old male with past medical history of COPD, type 2 diabetes mellitus, essential hypertension, dyslipidemia, asbestos exposure, and obesity, who presented to the emergency room with chief complaint of dyspnea. The patient also had some rhinorrhea, diaphoresis, and facial flushing, with associated dizziness and headache. In the emergency room, the patient underwent a chest x-ray that showed cardiomegaly with pulmonary vascular congestion. The patient's BNP was noted to be 3090. Provided the patient's history of present illness and the diagnostic findings, a clinical decision was made to admit the patient to inpatient setting to have him further evaluated. The patient was admitted to inpatient telemetry floor. A cardiology and pulmonary consult was called on this patient. The patient had underlying acute respiratory distress without any respiratory failure, which was hypoxic secondary to chronic obstructive pulmonary disease exacerbation and congestive heart failure exacerbation. The patient was maintained on inhaled bronchodilators and supplemental oxygen, with improvement in the patient's respiratory distress. The patient was started on tapering dose of IV steroids for his underlying COPD. The patient's respiratory status improved with the current management. The patient was being followed by Cardiology. The patient's second set of troponins were found to be elevated. Consequently, the patient was started on aspirin and Plavix. The patient underwent a nuclear medicine cardiac stress test that showed a moderate sized and nonreversible perfusion defect in the inferior, inferolateral, and inferoseptal garcia with [id number] hypokinesis of the left ventricle, with left ventricular ejection fraction at stress of 36%. The patient was confirmed to have ischemic cardiomyopathy. Hence, the patient was started on beta-blockers and DESTINY inhibitors. The patient was also started on statins. The patient remained hemodynamically stable. The patient's blood pressure was well controlled throughout the latter part of the patient's hospital course. The patient has underlying type 2 diabetes mellitus. The patient's hemoglobin A1c was found to be 6.7, indicating good blood glucose control over the past few weeks. However, the patient's blood glucose control inside the hospital was not that great because of the use of IV steroids for his underlying COPD. The patient also has a history of asbestos use. The patient underwent a CT scan of the chest that did not show any significant pulmonary findings, except extensive coronary artery calcification. The patient had a stable hospital course. The patient was cleared by consultants to be discharged home. The patient denied any complaints at the time of discharge. DISCHARGE DISPOSITION/PLAN: The patient will be discharged home today. The patient was instructed to take medications as per prescription, and to follow a low-cholesterol, carbohydrate-controlled diet. He was instructed to resume activities as tolerated. He was instructed to follow up with Dr. Hendricks in 2 weeks. He was instructed to follow up with Dr. Guerrero in 2 weeks. He was instructed to call for appointment for both of these doctors, but he was instructed to go to the nearest emergency room or call 911 if he has any significant shortness of breath or chest pain. The patient verbalized understanding of his discharge instructions. CONDITION AT DISCHARGE: Stable. DISCHARGE MEDICATIONS: 1. ProAir HFA 8.5 grams inhaled 2 puffs q. 4h p.r.n. shortness of breath. 2. Advair Diskus 250/50 one inhalation b.i.d. 3. Aspirin 81 mg p.o. daily. 4. Plavix 75 mg p.o. daily. 5. Lasix 20 mg p.o. daily. 6. Metoprolol tartrate 25 mg p.o. b.i.d. 7. Prednisone 20 mg p.o. daily x2 days, followed by prednisone 10 mg p.o. daily x2 days, followed by prednisone 5 mg p.o. daily x2 days. 8. Lipitor 40 mg p.o. at bedtime. 9. Glipizide 5 mg p.o. daily. 10. Lisinopril 40 mg p.o. daily. 11. Metformin 1000 mg p.o. with breakfast and dinner. PERTINENT LABORATORY AND DIAGNOSTIC DATA: 1. 2D echocardiogram. Ejection fraction of 40 to 45%. Mild mitral valve regurgitation. 2. Nuclear medicine cardiac stress test. Moderate sized nonreversible perfusion defect in the inferior, inferolateral, and inferoseptal garcia. Mild- to-moderate hypokinesis of the left ventricle. The left ventricular ejection fraction with stress is 36%. 2. Chest CT scan. Atherosclerosis. Extensive coronary artery calcification. Degenerative changes of the spine and thoracic kyphosis. 3. Latest CBC: WBC 10.4, hemoglobin 13.2, hematocrit 39.2, platelets of 187, 000. 4. Latest BMP: Sodium 140, potassium 4.6, chloride 100, carbon dioxide 28, anion gap 17, BUN 26, creatinine 1.02, glucose 243, calcium 9.3. 5. Hemoglobin A1c 6.7. 6. Fasting lipid panel: Triglycerides 246, total cholesterol 185, LDL 99, HDL 37. At this time, I would like to thank all the consultants for seeing the patient, doing the necessary procedures, and providing clinical recommendations. The case and management of this patient was fully discussed with Dr. Schroeder. Approximately 35 minutes was spent on coordinating discharge on this patient. AGNES SCHROEDER MD, AM/KIRAN Conf#: [id number] DID#: [id number]
[2016-06-25] MEDS ORDERED: FUROSEMIDE 20 MG TAB PO SCH (09:00)
== END 2016-06-24 16:20 | disposition home or self-care (01) | DRG 190 ==
LOC: E/R 18:40 → TEL 21:03
PROVIDERS: ADMIT Student in an Organized Health Care Education/Training Program; ATTEND Student in an Organized Health Care Education/Training Program
DX: J44.1 Chronic obstructive pulmonary disease with (acute) exacerbation (principal); I50.23 Acute on chronic systolic (congestive) heart failure; I21.4 Non-ST elevation (NSTEMI) myocardial infarction; E11.9 Type 2 diabetes mellitus without complications; I10 Essential (primary) hypertension; Z87.891 Personal history of nicotine dependence; Z77.090 Contact with and (suspected) exposure to asbestos; I73.9 Peripheral vascular disease, unspecified; I45.10 Unspecified right bundle-branch block; R00.0 Tachycardia, unspecified; I25.5 Ischemic cardiomyopathy; R09.02 Hypoxemia
CPT/HCPCS: 36415; 71010; 71260; 78452; 80048; 80053; 80061; 82550; 82553; 82962; 83036; 83690; 83735; 83880; 84443; 84484; 85025; 85610; 85730; 87400; 93005; 93017; 93306; 94644; 96365; 96366; 96372; 96375; 96376; A9500; A9505; J1644; J1815; J1940; J2060; J2785; J2920; J2930; J3475; J7040; Q9967